=== PATIENT | female | born 1960 | race Caucasian/White ===

== ENCOUNTER 2020-10-29 15:35 | Emergency (ER) | payer OTHER, SELFPAY ==
--- NOTE | ~2020-10-29 | XR_ITS ---
[XR ribs LT 2V ] INDICATION: Left rib pain TECHNIQUE: Frontal projection of the upper left ribs, frontal projection of the lower left ribs, obli que projection of all the left ribs, frontal inspiratory chest x-ray for interpretation. FINDINGS: There are no displaced rib fractures identified. There are no soft tissue abnormality see n. The lungs are clear. IMPRESSION: 1:No displaced rib fractures. Reviewed, dictated and finalized at location A.
--- NOTE | 2020-10-29 15:39 | ED.GENADULT ---
HPI - General Adult General Chief complaint: Unspecified Stated complaint: left side pain Time Seen by Provider: 10/29/20 15:39 Source: patient and RN notes reviewed History of Present Illness HPI narrative: Patient is a 60-year-old female who presents the urgent care with complaints of left side pain. Patient states that 6 days ago she climbed into a dumpster to try to fetch a pair shoes. Patient states that then a few days later she was throwing bags. Patient has been taking Tylenol for the pain. States that she initially heard a pop on the left side . Denies of any shortness of breath or chest pain. No other acute complaints. No acute distress noted. Patient aware of the plan of care. Some parts of this dictation were generated by voice recognition software and may contain typographical and/or grammatical inaccuracies. Related Data Home Medications Medication Instructions Recorded Confirmed alprazolam 10/29/20 atenolol 10/29/20 levothyroxine 10/29/20 omeprazole 10/29/20 Allergies Allergy/AdvReac Type Severity Reaction Status Date / Time fentanyl Allergy Severe Elevated Verified 10/29/20 15:40 heart rate promethazine Allergy Severe elevated Verified 10/29/20 15:40 heart rate diltiazem Allergy Unknown unknown Verified 10/29/20 15:40 Review of Systems Review of Systems: CONSTITUTIONAL: Denies fever, chills, or sweats. EYES: Denies visual changes, redness, or discharge. ENT: Denies rhinorrhea, congestion, sore throat, or otalgia. CARDIOVASCULAR: Denies chest pain, palpitations, or edema. RESPIRATORY: Denies cough or dyspnea. GASTROINTESTINAL: Denies abdominal pain, nausea, vomiting, or diarrhea. GENITOURINARY: Denies dysuria or hematuria. SKIN: Denies rash or itching. MUSCULOSKELETAL: Reports of left-sided rib pain. Denies back pain, joint pain, or myalgia. NEUROLOGIC: Denies headache, numbness, or weakness. All other systems reviewed are negative, except as documented in HPI. PMFSH Comments At the time of my signature, I reviewed and agree with the nursing past medical, surgical, social, and family history. There is no relevant family history pertinent to the patient complaint. Exam Narrative: GENERAL: This is a well-nourished, well-developed patient, in no apparent distress. HEAD: normocephalic, atraumatic. EYES: PERRL. Sclera clear/white. Vision is grossly intact. EARS: External ears normal NOSE: External nose normal with no obvious nasal discharge, nares without redness, no rhinorrhea. THROAT: Mucous membranes moist NECK: Neck supple CARDIOVASCULAR: Regular rate and rhythm without murmurs, gallops, or rubs. RESPIRATORY: Left-sided mild anterior rib tenderness with notable edema/contusion. Clear to auscultation. Breath sounds equal bilaterally. No wheezes, rales, or rhonchi. SKIN: warm, intact with no suspicious lesions or rash, good texture and turgor. NEURO: awake, alert, and oriented to person, place and time. There were no obvious focal neurologic abnormalities. EXTREMITIES: No clubbing, cyanosis, or edema. BACK: Nontender without deformity or crepitance. No flank tenderness. Course Vital Signs Vital signs: Vital Signs Temperature 98.1 F 10/29/20 15:41 Pulse Rate 53 L 10/29/20 15:41 Respiratory Rate 16 10/29/20 15:41 Blood Pressure 125/67 10/29/20 15:41 Pulse Oximetry 98 10/29/20 15:41 Temperature 98.1 F 10/29/20 15:41 Pulse Rate 53 L 10/29/20 15:41 Respiratory Rate 16 10/29/20 15:41 Blood Pressure 125/67 10/29/20 15:41 Pulse Oximetry 98 10/29/20 15:41 reviewed Medical Decision Making MDM Narrative Medical decision making narrative: Reviewed x-ray results with the patient. She is aware that there is no rib fracture or displacement. There is a notable contusion to the anterior chest and advised the patient to use an ice pack to the area and continue Tylenol/ibuprofen. If you develop any increase in swelling associated with pain, shortn
[2020-10-29 15:41] VITALS: BP 125/67; PULSE 53; RESP 16; TEMP 36.7; O2SAT 98
== END 2020-10-29 16:30 | disposition home or self-care (01) ==
PROVIDERS: Emergency Provider Nurse Practitioner Family; PCP Family Medicine
DX: S20.212A Contusion of left front wall of thorax, initial encounter (principal); X50.3XXA Overexertion from repetitive movements, initial encounter; K21.9 Gastro-esophageal reflux disease without esophagitis; E03.9 Hypothyroidism, unspecified; Z85.9 Personal history of malignant neoplasm, unspecified; Z90.13 Acquired absence of bilateral breasts and nipples; Z92.21 Personal history of antineoplastic chemotherapy; Z92.3 Personal history of irradiation
CPT/HCPCS: 71100; 99213; G0463

== ENCOUNTER 2022-10-13 14:31 | Outpatient (CLI) | payer OTHER, SELFPAY ==
--- NOTE | 2022-10-13 15:00 | ECG_ITS ---
Measurements Intervals [place] Rate: 72 P: 75 KS: 167 QRS: 73 QRSD: 94 T: 71 QT: 366 QTc: 403 Interpretive Statements SINUS RHYTHM MINIMAL Q WAVES- ANTEROLAT/INF LEADS BASELINE ARTIFACT- I, II, III, AVR, AVL BORDERLINE ECG NO PREVIOUS ECG AVAILABLE FOR COMPARISON Electronically Signed On 10-13-2022 15:00:10 CDT by Derrell Robles D.O.
== END 2022-10-13 14:32 | disposition home or self-care (01) ==
LOC: ANHSURGERY 14:37
PROVIDERS: PCP Family Medicine; Visit Provider Otolaryngology
DX: Z01.818 Encounter for other preprocedural examination (principal); F17.210 Nicotine dependence, cigarettes, uncomplicated
CPT/HCPCS: 93005

== ENCOUNTER 2022-10-19 00:22 | Day surgery (SDC) | payer OTHER, SELFPAY ==
[2022-10-12 15:31] VITALS: BMI 25.8
--- NOTE | 2022-10-12 15:39 | SUR.PREOP ---
Report to the Outpatient Waiting Room, entrance under the green pavilion located off [facility], at time 0630 on date 10/19/22. Planned Procedure Time: 0830. Time changes happen often and if your time is changed the preop area will call you the afternoon before. - You and your visitor will be asked to self-screen and do not enter if you have any COVID symptoms. - A mask is optional within the hospital at this time. Patients may have clear liquids (water, carbonated beverages, clear teas, apple juice) until 3 hours prior to surgery with a maximum of 20 ounces. - No food from midnight until time of surgery 20 ounces before 0530 am - Infants may have breast milk until 4 hours before surgery, formula 6 hours prior to surgery. - Children will be allowed to drink immediately following surgery. If applicable, please bring a bottle or sippy cup to assist with drinking. Juice, water, soda, and popsicles are readily available. For infants on formula, please bring formula the day of surgery. Pacifiers are allowed. Take the following medications with a SIP of water the morning of surgery: atenolol and levothyroxine DO NOT STOP ANY OF YOUR OTHER PRESCRIPTION MEDICATIONS PRIOR TO SURGERY ?EXCEPT THE FOLLOWING Medications to discontinue per physician ____vitamins and supplements and 3 days Date to take last dose Please no make-up, nail citizen of the [place], hairspray, perfume, deodorant, or body powder the day of surgery. No jewelry (including any body piercings) or valuables the day of surgery, leave them at home. Please take a shower or bath the night before, or the morning of, surgery with an antibacterial soap. Wear comfortable, loose fitting clothing. Children are encouraged to wear pajamas. - Jewelry must be removed prior to entering the operating room. Rings and piercings that are not removed may be cut off. - The hospital will not accept responsibility for valuables. - Please leave all valuables, including medications, at home the day of surgery. If you are going home after surgery, a licensed [facility] ambulance driver must drive you home. - NO public transportation without another adult if you receive anesthesia. - We recommend that an adult stay with you for 24 hours following discharge. - We also recommend that you do not drive, make important decision, drink alcoholic beverages, or take any drugs that were not prescribed by your health care provider for at least 24 hours after your discharge time. For Pediatric surgeries, we recommend two adults accompany the child home. Follow any additional instructions given to you from your surgeon. If you or anyone in your household have experienced Covid symptoms in the past week, please notify your surgeon or the nurse liaison at the phone number below for possible testing. Telephone instructions given to _patient__and asked if any additional questions and then verbalized understanding. Patient advised to call surgeon office or pre surgery nurse liaison [phone] if any additional questions.
--- NOTE | 2022-10-18 17:35 | PM.IMHP ---
H&P: HPI History of Present Illness Date/Time: 10/18/22 17:35 Chief Complaint: Vocal cord polyp course voice Narrative: planned procedure Review of Systems Review of Systems: All systems reviewed & are unremarkable except as noted in HPI and below PMFSH Past Medical History Medical History Breast cancer 2002 and 2016 Uterine cancer Surgical History Surgical History S/P mastectomy, bilateral Social History Social History Smoking packs per day: 1 Smoking cigarettes per day: 20.0 Years smoked: 40 Smoking pack-years: 40.00 Smoking status: Current every day smoker Tobacco type: cigarettes Lack of Transportation: No Lack of Food: Never True Current Housing: I Have Housing Concerned About Future Housing: No Difficulty Paying Gas/Electric Bills: No Difficulty Paying for Meds: No Currently Unemployed: No Education: High School Diploma/GED Difficulty w/ Childcare or Family Care: No Living arrangements: with family Spiritual care concerns: No Meds Home Medications and Allergies Home Medications Medication Instructions Recorded Confirmed Type alprazolam 0.25 mg tablet 0.25 mg PO TID PRN Anxiety 10/29/20 10/12/22 History atenolol 50 mg tablet 50 mg PO DAILY 10/29/20 10/12/22 History levothyroxine 112 mcg tablet 112 mcg PO DAILY 10/29/20 10/12/22 History omeprazole 40 mg capsule,delayed 40 mg PO DAILY 10/29/20 10/12/22 History release calcium carbonate 600 mg calcium 1,200 mg PO ONCE 09/14/22 10/12/22 History (1,500 mg) tablet (Calcium) multivitamin 1 tablet PO DAILY 09/23/22 10/12/22 History Allergies Allergy/AdvReac Type Severity Reaction Status Date / Time fentanyl Allergy Severe Elevated Verified 09/23/22 10:16 heart rate promethazine Allergy Severe elevated Verified 09/23/22 10:16 heart rate diltiazem Allergy Unknown unknown Verified 09/23/22 10:16 Exam Narrative: vocal cord polyps Assessment and Plan Assessment and plan (1) Hoarse voice quality: Code(s): R49.0 - Dysphonia Status: Acute Assessment and Plan: plan 0 are Microdirect laryngoscopy with excision of bilateral vocal cord polyps risks were discussed risks were discussed including bleeding infection need for tracheostomy vocal cord paralysis damage to any structures above the clavicle by myself damage to dentition damage to draw damage to any structure during the induction and maintenance of anesthesia vocal cord scarring worsening of voice recurrence of polyps she smokes. Patient voiced understanding and agreed (2) Chronic laryngitis: Code(s): J37.0 - Chronic laryngitis Status: Acute (3) Vocal cord polyps: Code(s): J38.1 - Polyp of vocal cord and larynx Status: Acute
[2022-10-19] VITALS (8 sets, daily range): BP systolic 117–159; BP diastolic 50–96; PULSE 54–86; RESP 14–20; TEMP 36.3–36.4; O2SAT 94–100
--- NOTE | 2022-10-19 07:37 | WPDHPUPDATE1 ---
History and Physical Update Update Date/Time: 10/19/22 07:37 History and Physical has been reviewed, including an updated exam of the patient. There are NO changes in the patient's condition. Risks, benefits, and alternatives have been discussed and questions answered. Patient agrees to proceed with procedure.
[2022-10-19] MEDS: LACTATED RINGERS 1,000 ML 30 ML IV CONT ×2 (10:00→14:37)
--- NOTE | 2022-10-19 11:52 | WPDANESEPPF ---
Anes - Initial Pre Proc Eval Procedure: Operation Date: 10/19/22 11:30 Proposed Procedures p Micro Direct Laryngoscopy with Excision Bilateral Vocal Cord Polyps - Sony Barrios MD Date/Time: 10/19/22 11:52 Surgeon: Sony Barrios MD Pre Op Diagnosis: Vocal Cord Polyps Patient Data Age: 62 Gender: F Height: 1.7 m Weight: 76.1 kg Last Vital Signs Temp 36.3 C L 10/19/22 10:31 Pulse 72 10/19/22 10:31 Resp 16 10/19/22 10:31 BP 124/76 10/19/22 10:31 Pulse Ox 98 10/19/22 10:31 O2 Del Method Room Air 10/19/22 10:31 Allergies Allergy/AdvReac Type Severity Reaction Status Date / Time fentanyl Allergy Severe Elevated Verified 10/19/22 10:30 heart rate promethazine Allergy Severe elevated Verified 10/19/22 10:30 heart rate diltiazem Allergy Unknown unknown Verified 10/19/22 10:30 Home Medications Medication Instructions Recorded Confirmed Type alprazolam 0.25 mg tablet 0.25 mg PO TID PRN Anxiety 10/29/20 10/12/22 History atenolol 50 mg tablet 50 mg PO DAILY 10/29/20 10/19/22 History levothyroxine 112 mcg tablet 112 mcg PO DAILY 10/29/20 10/12/22 History omeprazole 40 mg capsule,delayed 40 mg PO DAILY 10/29/20 10/12/22 History release calcium carbonate 600 mg calcium 1,200 mg PO ONCE 09/14/22 10/12/22 History (1,500 mg) tablet (Calcium) multivitamin 1 tablet PO DAILY 09/23/22 10/12/22 History Patient hx anesthesia problems: post op nausea/vomiting Family hx anesthesia problems: none Results Review: All pre-operative results and documents have been reviewed as part of the pre-operative evaluation. [facility] Past Medical History Medical History Breast cancer 2002 and 2016 Uterine cancer Surgical History Surgical History S/P mastectomy, bilateral Social History Social History Smoking packs per day: 1 Smoking cigarettes per day: 20.0 Years smoked: 40 Smoking pack-years: 40.00 Smoking status: Current every day smoker Tobacco type: cigarettes Lack of Transportation: No Lack of Food: Never True Current Housing: I Have Housing Concerned About Future Housing: No Difficulty Paying Gas/Electric Bills: No Difficulty Paying for Meds: No Currently Unemployed: No Education: High School Diploma/GED Difficulty w/ Childcare or Family Care: No Living arrangements: with family Spiritual care concerns: No Anes - Eval Final PreProcedure Day of Procedure 10/19/22 11:52 Patient weight: overweight Heart: regular rate and rhythm Lungs: decreased breath sounds Airway: Mallampati scale class II Neurological: alert and oriented Last oral intake: >/= 8 hours ASA classification: III Emergent: no Anesthetic plan: proceed Anesthesia type and monitoring: general ETT and standard monitoring Results Review: All pre-operative results and documents have been reviewed as part of the pre-operative evaluation. Informed Consent: The patient's anesthetic plan and its attendant risks and benefits were discussed with the patient/family/POA. Questions were solicited and answers provided to the satisfaction of the patient/family/POA.
--- NOTE | 2022-10-19 15:08 | P.OP_ITS ---
Procedure Note - Detailed Date of Procedure 10/19/22 Pre-op Diagnosis Vocal Cord Polyps, hoarse voice Post-op Diagnosis Same Procedure Performed Microlaryngoscopy with excision of bilateral vocal cord polyps. Surgeon Sony Barrios MD Anesthesia General Indications See above Findings Large vocal cord polyps bilaterally removed slightly more epithelium that I like removed from the right side left side was perfect Description of Procedure Patient identified consent verified preop. Patient brought to the operating room. Time-out performed. General anesthesia induced endotracheal tube secured. Patient prepped reposition procedure confirm 2nd time-out performed. Maxillary tooth mouth guard placed after that was rotated Dedo laryngoscope inserted could view the cords slightly difficult to view the anterior c ommissure. Right cord sorry right polyp grasped I patient was placed in suspension. Right cord grasped incised superiorly all the edematous gelatinous material was suctioned out excess epithelium which was a significant amount was cut. I ensured to not create a scar or exposed tissue the anterior commissure. The exact same procedures performed on the left side with perfect results. Again no opposing wounds were left at the anterior commissure. Minimal blood loss about 1 cc. I performed all dictated portions of procedure laryngoscope was taken out maxillary tooth mouth guard was taken out care the patient back to Anesthesiology. Patient seen in PACU. No complications. Estimated Blood Loss 1 Drains No Packing No Pathology Yes Complications No immediate complications Condition Stable Disposition PACU [facility] Billing Surgery - Charge Forward: Surgery Billing
== END 2022-10-19 16:30 | disposition home or self-care (01) ==
PROVIDERS: PCP Family Medicine; Visit Provider Otolaryngology
PROC: 0CJS8ZZ Inspection of Larynx, Via Natural or Artificial Opening Endoscopic (ICD-10-PCS; CPT 31541; principal; 2022-10-19 11:30)
DX: J38.1 Polyp of vocal cord and larynx (principal); J37.0 Chronic laryngitis; R49.0 Dysphonia; Z85.3 Personal history of malignant neoplasm of breast; Z85.42 Personal history of malignant neoplasm of other parts of uterus; F17.210 Nicotine dependence, cigarettes, uncomplicated
CPT/HCPCS: 31541; 88305; 93005; A9270; J1100; J1170; J2250; J2405; J2704; J3010; J7120

== ENCOUNTER 2024-03-10 09:05 | Emergency (ER) | payer OTHER, SELFPAY ==
--- NOTE | ~2024-03-10 | XR_ITS ---
EXAMINATION: XR chest 2V DATE: 03/10/2024 09:42 INDICATION: Acute cough. TECHNIQUE: Frontal and lateral views of the chest were obtained. COMPARISON: None. FINDINGS: There is no pneumonia, pleural effusion, or pneumothorax. There is a right-sided breast imp lant. Surgical clips in the right upper quadrant are likely from cholecystectomy. There are surgical clips in left axilla. There is mild chronic height loss of multiple vertebral bodies. IMPRESSION: 1. No acute cardiopulmonary disease. Reviewed, dictated and finalized at location A. ING SUPERVISOR
--- OUTSIDE RECORDS SUMMARY | 2024-03-10 09:11 | XMS_ITS ---
Author Organization [facility] al Address [address] [place] [address] Care Team Providers Care Batter Depositor Name Role Phone Conor Ruiz MD Primary Care Provider [phone] [phone] Corky Carias MD Unavailable + [phone] Grazyna Valdivia NP Unavailable Aletha Lee PT Unavailable Unavaila ble Active Problems Problem Noted Date Diagnosed Date Pneumonia of right middle lobe due to infectious organism 02/28/2024 Assessment & Plan (02/28/2024 9:33 AM RECEIVING BARN CUSTODIAN): F/u cxr to ensure clearing and will follow response. NO f/c, no cough. LUQ pain 02/28/2024 Assessment & Plan (02/28/2024 9:33 AM RECEIVING BARN CUSTODIAN): Reviewed differnitia.. Most consistent with neuropathic pain related to postopative changes. Reivewed warning s/s for intra-abdominal or cardiac etiologies of pain. H/O bilateral mastectomy 02/14/2024 Former smoker 10/25/2023 Assessment & Plan (10/25/2023 8:10 AM CDT): Congratulations on quitting! Great job! She is past due for follow-up lung CT. Ordered. Will plan accordingly once results are received. Essential hypertension 10/25/2023 Assessment & Plan (02/28/2024 9:32 AM RECEIVING BARN CUSTODIAN): Stable on metoprolol XL and will follow response. Assessment & Plan (10/25/2023 7:59 AM CDT): Stable. Continue metoprolol. Will continue to monitor. Lipid screening 10/25/2023 Assessment & Plan (02/28/2024 9:33 AM RECEIVING BARN CUSTODIAN): Continue on montioring lipid panel. Assessment & Plan (10/25/2023 8:01 AM CDT): Lipid panel reviewed. Reviewed lifestyle recommendations. Abnormal stress test 07/29/2023 History of breast cancer 03/09/2023 Assessment & Plan (03/09/2023 3:50 PM RECEIVING BARN CUSTODIAN): Status post bilateral mastectomy. See plan as above. Lymphadenopathy, axillary 03/09/2023 Assessment & Plan (03/09/2023 3:50 PM RECEIVING BARN CUSTODIAN): Ultrasound ordered for evaluation. CA 125 ordered as well. Will plan accordingly once results are received. Can consider follow-up with Oncology as well for monitoring due to her history of triple cancer. BMI 28.0-28.9,adult 03/09/2023 Assessment & Plan (10/25/2023 8:10 AM CDT): Reviewed lifestyle recommendations. Recommend weight watchers and exercise. Will continue to monitor. Coronary artery disease without angina pectoris 01/05/2023 Personal history of colonic polyps 09/24/2022 Lumbar radiculopathy 05/06/2022 Lumbar stenosis without neurogenic claudication 05/06/2022 Sacroiliitis 03/11/2022 Hx of local infection of skin and subcutaneous t issue 02/15/2022 Assessment & Plan (02/15/2022 5:24 PM RECEIVING BARN CUSTODIAN): Right thigh abscess noted in 11/2021 that improved with oral antibiotics. Continues to have tenderness in the area. No fevers, pain, or drainage. No signs of infection at site or surrounding erythema. Plan for cleansing area with warm soapy water, completely drying, and applying mupirocin ointment. Patient aware to follow up with any new symptoms. History of colonic polyps 02/15/2022 Assessment & Plan (02/15/2022 5:24 PM RECEIVING BARN CUSTODIAN): Referral placed, patient aware to call and schedule. Chronic left-sided low back pain with left-sided sciatica 02/15/2022 Assessment & Plan (02/15/2022 1:10 PM RECEIVING BARN CUSTODIAN): Patient still experiencing pain post physical therapy completion. Pain has never fully resolved and worsens with strenuous activity and prolonged periods of standing and sitting. Pain does not radiate. Pain greater on the left than right. Denies any new/recent injury. No numbness or weakness in legs. Plan for meloxicam 7.5mg to aid in pain management while awaiting pain management referral. Adrenal adenoma, left 03/06/2021 Assessment & Plan (03/18/2022 9:12 AM RECEIVING BARN CUSTODIAN): Left adrenal adenoma since 2016 Stable in size based on CT on 05/14/20 No sign of hormone dysfunction- pheochromocytoma and hyper-mei were ruled out by labs in 2020 Assessment & Plan (03/06/2021 9:30 AM RECEIVING BARN CUSTODIAN): Left adrenal adenoma since 2016 Stable in size based on CT on 05/14/20 Patient is asking if this is causing problems. - we will do some evaluation for adrenal hormones, but stability indicates benign nature of the lesion. 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 Contact info given to Sri. Aware that Dr Carrasco's office should call her to set up eval. Anxiety 03/05/2019 Assessment & Plan (02/15/2022 5:25 PM RECEIVING BARN CUSTODIAN): Symptoms stable, requesting refill of alprazolam. Patient using medication infrequently. Will continue to monitor. Assessment & Plan (06/16/2020 3:18 PM CDT): Xanax 0.25mg tid prn #90 refilled 05/27/20. Had not filled since 09/2019. Reports good control of anxiety w/current regimen. No changes to be made at this time. Reviewed med Ses & scheduling. Reviewed red flags. Assessment & Plan (10/05/2019 2:49 PM CDT): Xanax increased from #30 to #90 tabs; #30 tabs usually lasts 1-2 mos. Reports good control of anxiety w/current regimen. No changes to be made at this time. Reviewed med Ses & scheduling. Reviewed red flags. Assessment & Plan (03/05/2019 4:35 PM RECEIVING BARN CUSTODIAN): Will continue current prescribed medications and she seems to be effective for her. BMI 27.0-27.9,adult 08/04/2018 Assessment & Plan (02/15/2022 1:14 PM RECEIVING BARN CUSTODIAN): Discussed healthy diet and importance of regular physical activity. Assessment & Plan (06/04/2021 11:38 AM CDT): Discussed healthy diet and importance of regular physical activity. Assessment & Plan (08/04/2018 10:36 AM CDT): Discussed healthy diet and importance of regular physical activity. Screening for diabetes mellitus 08/04/2018 Assessment & Plan (08/04/2018 10:38 AM CDT): A1c ordered; will contact w/results once rec'd. Encounter for screening for lipoid disorders Assessment & Plan (06/04/2021 1:02 PM CDT): 05/2021 TC 220 HDL 51 TRG 263 LDL 117 Reviewed lipid today with patient. Discussed elevated triglyceride level and diet and exercise recommendations. Assessment & Plan (06/16/2020 3:40 PM CDT): Lipid panel ordered; will call w/results when received. Reviewed diet/exercise recommendations. Assessment & Plan (08/04/2018 10:37 AM CDT): Lipid panel ordered; will call w/results when received. Reviewed diet/exercise recommendations. Palpitations 08/04/2018 Assessment & Plan (06/16/2020 3:39 PM CDT): No changes. Rare, intermittent palpitations. Status post breast reconstruction 07/11/2018 Hypothyroidism 04/29/2017 Assessment & Plan (02/28/2024 9:32 AM RECEIVING BARN CUSTODIAN): Continue on thyroid medication replacmeent and will follow response. Clincialy and chemically euthyorid. Assessment & Plan (10/25/2023 8:09 AM CDT): Status post VELARDE treatment in 1999. Clinically and chemically euthyroid. Will continue to monitor. Assessment & Plan (03/18/2022 8:57 AM RECEIVING BARN CUSTODIAN): S/p VELARDE treatment in 1999 Patient is clinically euthyroid, TSH of 2.8 on 03/06/21 Plan: Continue Levothyroxine 112 mcg/day The proper way of taking Levothyroxine reviewed with patient. Check TSH I will adjust the dose if needed. Assessment & Plan (03/06/2021 9:28 AM RECEIVING BARN CUSTODIAN): S/p VELARDE treatment in 1999 Patient is clinically euthyroid, TSH of 1.2 on 11/23/19 Plan: Continue Levothyroxine 112 mcg/day The proper way of taking Levothyroxine reviewed with patient. Check TSH I will adjust the dose if needed. Assessment & Plan (06/16/2020 2:12 PM CDT): Managed by Dr Sehti. Assessment & Plan (11/26/2019 11:30 AM CDT): S/p VELARDE treatment in 1999 Patient is clinically euthyroid, TSH of 1.2 on 11/23/19 Plan: Continue Levothyroxine 112 mcg/day The proper way of taking Levothyroxine reviewed with patient. Assessment & Plan (10/05/2019 2:47 PM CDT): TSH/T4 ordered; will contact with results when received. Reviewed med SE & scheduling. Reviewed sxs hypo/hyperthyroidism. No changes at this time. Assessment & Plan (08/04/2018 10:37 AM CDT): TSH/T4 ordered; will call w/results when rec'd. Reviewed med Ses & scheduling. Reviewed sxs hypo/hyperthyroidism. No changes at this time. 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 Keep up the great work! Assessment & Plan (02/15/2022 5:23 PM RECEIVING BARN CUSTODIAN): Encouraged complete cessation. Patient due for annual CT lung cancer screening, ordered today. Assessment & Plan (06/16/2020 2:12 PM CDT): Precontemplative. Encouraged complete smoking cessation. Discussed different types of medications & ivam-xox-vddwguk aides to help with cessation. Assessment & Plan (10/05/2019 2:46 PM CDT): Precontemplative. Encouraged complete smoking cessation. Discussed different types of medications & rvma-act-cmqvcwm aides to help with cessation. Assessment & Plan (08/04/2018 10:39 AM CDT): Precontemplative. Encouraged complete smoking cessation. Discussed different types of medications & prho-dxv-bkujbgz aides to help with cessation. CT lung cancer screening ordered. Will contact w/results once rec'd. Hypertension 06/23/2013 Overview (05/12/2016): HYPERTENSION NOS Assessment & Plan (03/09/2023 3:49 PM RECEIVING BARN CUSTODIAN): Normotensive. Continue with lifestyle management. Will continue to monitor. Assessment & Plan (03/18/2022 9:11 AM RECEIVING BARN CUSTODIAN): Controlled with medication - continue medication per PCP - low salt diet. Assessment & Plan (03/06/2021 8:58 AM RECEIVING BARN CUSTODIAN): Controlled with medication - continue medication per PCP - low salt diet. Assessment & Plan (06/16/2020 3:39 PM CDT): The blood pressure is under good control. Ideally it should be under 130/80. Continue medications without adjustment. Continue efforts to eat well (4-5 fruits and veggies) daily and exercise for about 30 min nearly every day. Watch salt intake, keeping to less than 2000mg per day. Limit alcohol. Include strategies to cope with stress. Assessment & Plan (05/28/2020 10:44 AM CDT): BP has been elevated since arrival, though this is most likely exacerbated by pain and nausea. Will monitor blood pressure with home atenolol as pain and nausea have improved. Assessment & Plan (11/26/2019 11:31 AM CDT): Controlled with medication - continue medication per PCP - low salt diet. Assessment & Plan (10/05/2019 2:47 PM CDT): The blood pressure is under good control. Ideally it should be under 130/80. Continue medications without adjustment. Continue efforts to eat well (4-5 fruits and veggies) daily and exercise for about 30 min nearly every day. Watch salt intake, keeping to less than 2000mg per day. Limit alcohol. Include strategies to cope with stress. Labs ordered today; will contact w/results once received. Assessment & Plan (08/04/2018 10:37 AM CDT): The blood pressure is under good control. Ideally it should be under 130/80. Continue medications without adjustment. Continue efforts to eat well (4-5 fruits and veggies) daily and exercise for about 30 min nearly every day. Watch salt intake, keeping to less than 2000mg per day. Limit alcohol. Include strategies to cope with stress. Labs ordered today; will contact w/results once received. Gastroesophageal reflux disease 12/25/2012 Assessment & Plan (06/16/2020 3:40 PM CDT): Would like to stop omeprazole d/t recent julieta. Believes that her stomach pain issues were all r/t gallbladder. Reviewed that omeprazole was initiated in 2012. Will watch diet. Aware that she can resume omeprazole if needed. Assessment & Plan (10/23/2019 11:34 AM CDT): Continue omeprazole Continue to work on smoking cessation Consider surgery to reduce Alexis edema after smoking cessation Current Oncology Plans No current plan information found. Past Plans No past plan information found. Radiation Treatments * No radiation treatments are documented for this patient in [facility]. Treatments may have been administered in another system. Lifetime Dose Tracking * Chemical Lifetime Dose Automatic Entry Manual Entr y Fluoro Time 0.083 minutes 0.083 minutes 0 minutes Air kerma at the reference point (Ka,r) 1.742 mGy 1 .742 mGy 0 mGy DLP 149.1 mGycm 149.1 mGycm 0 mGycm CTDIvol 4.84 mGy 4.84 mGy 0 mGy Resolved Problems Problem Noted Date Diagnosed Date Resolved Date Contusion of rib on left side 02/25/2023 02/25/2023 Chronic bilateral low back p ain without sciatica 06/04/2021 05/06/2022 Assessment & Plan (06/04/2021 1:05 PM CDT): Will check imaging today to determine next steps. Patient to take ibuprofen 600 mg 3 times a day with food for pain and inflammation. Given a prescription for Flexeril 5 mg 3 times a day for muscle spasms, encouraged patient to take mainly at night. Reviewed medication side effects and scheduling. The patient denies any numbness/tingling down the legs or loss of bowel/bladder. Reviewed red flag signs and symptoms warranting immediate evaluation. Discussed physical therapy as indicated following imaging today. BMI 25.0-25.9,adult 06/16/2020 06/05/19 22 Assessment & Plan (06/16/2020 3:41 PM CDT): Discussed healthy diet and importance of regular physical activity. BMI is acceptable for this patient. Cholecystitis 05/28/2020 06/25/2020 Assessment & Plan (05/28/2020 10:36 AM CDT): Cholelithiasis read demonstrated on imaging with mild gallbladder thickening suggestive of acute cholecystitis. This is supported by leukocytosis and symptom profile. General surgery consulted. Will start Zosyn while awaiting surgery evaluation. Unintentional weight loss 10/05/2019 Assessment & Plan (10/05/2019 2:46 PM CDT): Has lost ~35# on her own scale wo trying. H/o breast ca x2 & uterine ca. Whole body scan & labs ordered. Will contact w/results once rec'd. Will continue to monitor weight & intake. BMI 21.0-21.9, adult 10/05/2019 021 Assessment & Plan (10/05/2019 2:48 PM CDT): Unintentional wt loss of 35# in ~6 mos. To continue to monitor wt/intake. Acute rhinitis 03/05/2019 10/05/2019 Assessment & Plan (03/05/2019 4:34 PM RECEIVING BARN CUSTODIAN): Advised to try and stop smoking. Dizziness 08/04/2018 10/05/2019 Assessment & Plan (08/04/2018 10:39 AM CDT): EKG SB w/o ectopy. HR 53. Reviewed w/Dr Ruiz. Compared to past EKGs. holter monitor ordered; will contact w/results once rec'd. To re-engage with cardiology. Will send holter monitor results to their office. Reviewed red flags; what would warrant rtc or ED for more emergent eval. Encounter for breast reconst ruction following mastectomy 07/11/2018 06/16/2020 Impacted cerumen 08/26/2015 06/16/2020 Overview (05/14/2016): Left ear impacted cerumen Cigarette smoker 07/20/2015 06/16/2020 Assessment & Plan (03/05/2019 4:35 PM RECEIVING BARN CUSTODIAN): She does not wish to stop smoking at this time. Hyperthyroidism 06/23/2013 04/29/2017 Overview (05/12/2016): Hyperthyroidism Gastrointestinal tract bleed 01/10/2012 10/05/2019 Headache(784.0) 06/15/2010 10/05/2019
--- OUTSIDE RECORDS SUMMARY | 2024-03-10 09:11 | XMS_ITS | Encounter Summary ---
Author Organization [facility] Address [address] [place] [address] Care Team Providers Care Mend Worker Name Role Phone Conor Ruiz MD Primary Care Provider [phone] Conor Ruiz MD Primary Care Provider [phone] Conor Ruiz MD Primary Care Provider [phone] Conor Ruiz MD Primary Care Provider [phone] Conor Ruiz MD Primary Care Provider [phone] Corky Carias MD Unavailable [phone] [phone] Grazyna Valdivia NP Unavailable Aletha Lee PT Unavailable Unavaila ble Encounter Details Date Type Department Care Team (Late st Contact Info) Description 1960 Orders Only [facility] [place] [facility] Information Management [address] [place] [address] Scanning, Provider Social History Tobacco Use Types Packs/Day Years Used Date Smoking Tobacco: Never Assessed Comments Unknown Sex and Gender Information Value Date Recorded Sex Assigned at Not on file Legal Sex Female 11:50 PM EQUIPMENT ASSOCIATE Gender Identity Not on file Sexual Orientation Not on file documented as of this encounter Plan of Treatment Not on file documented as of this encounter Procedures Procedure Name Priority Date/Time Associated Diagnosis Comments SCAN - RADIOLOGY/IMAGING 1960 documented in this encounter Results * SCAN - RADIOLOGY/IMAGING (1962) Anatomical Region Laterality Modality Other us Provider Scanning Final Result documented in this encounter Visit Diagnoses Not on filedocumented in this encounter Additional Health Concerns Infection Onset Date Last Indicated Resolved Time COVID: Suspected 11/14/2020 11/14/2020 11/14/2020 10:51 AM CDT COVID: Suspected 11/14/2020 11/14/2020 11/15/2020 7:10 AM CDT COVID: Suspected 11/04/2021 11/04/2021 11/04/2021 2:58 PM CDT COVID: Suspected 01/22/2022 01/22/2022 01/22/2022 1:24 PM EQUIPMENT ASSOCIATE COVID19 01/22/2022 01/22/2022 02/01/2022 3:05 AM EQUIPMENT ASSOCIATE COVID: Recovered Comment:Added based on recent COVID infection. 02/01/2022 02/04/2022 05/02/2022 3:05 AM C DT COVID: Suspected 09/18/2022 09/18/2022 09/18/2022 5:55 PM CDT COVID: Suspected 05/06/2023 05/06/2023 05/06/2023 8:32 AM CDT COVID: Suspected 01/08/2024 01/08/2024 01/08/2024 3:13 PM EQUIPMENT ASSOCIATE documented as of this encounter Care Teams Mend Worker Relationship Specialty Start Date End Date Conor Ruiz MD [address] [place] [address] PCP - General 05/07/16 Conor Ruiz MD [address] [place] [address] PCP - General 03/05/10 05/06/16 Conor Ruiz MD [address] [place] [address] PCP - General 08/01/09 03/04/10 Conor Ruiz MD [address] [place] [address] PCP - General 01/27/09 07/31/09 Conor Ruiz MD [address] [place] [address] PCP - General 02/25/06 01/26/09 Corky Carias MD [address] [place] [address] Surgeon General Surgery 05/29/20 Grazyna Valdivia, GOLD CHARMER [address] [place] [address] Nurse Practitioner Family Medicine 05/29/20 Aletha Lee, PT Physical Therapist Physical Therapy 07/20/21 documented as of this encounter
--- OUTSIDE RECORDS SUMMARY | 2024-03-10 09:11 | XMS_ITS | Referral Summary ---
Author Organization [facility] Address [address] [place] [address] Care Team Providers Care Acid Tank Liner Name Role Phone Conor Ruiz MD Primary Care Provider [phone] Corky Carias MD Unavailable [phone] Grazyna Valdivia NP Unavailable Aletha Lee PT Unavailable Unavaila ble Encounters Date Type Department Care Team Description 02/21/19 8:26 AM CATAPULT AND ARRESTING GEAR OFFICER - 02/21/19 11:59 PM CATAPULT AND ARRESTING GEAR OFFICER Hospital Encounter [facility] [address] [place] [address] LUQ pain Discharge Disposition: Discharge to home or self care 02/13/19 3:15 PM CATAPULT AND ARRESTING GEAR OFFICER Office Visit [facility] Primary Care at [address] [phone] Conor Ruiz MD Essential hypertension (Primary Dx); Lipid screening; Hypothyroidism, unspecified type; Pneumonia of right middle lobe due to infectious organism; LUQ pain 02/12/19 25 Telephone [facility] Surgery [facility] Floor [address] [place] [address] Elisabeth Weber MD 02/02/20 24 Telephone [facility] [address] [place] [address] Conor Ruiz MD Medical Question/Miscellaneous 01/25/20 10:07 AM CATAPULT AND ARRESTING GEAR OFFICER Anesthesia Event [address] [address] Jey Whatley MD 01/25/20 9:30 AM CATAPULT AND ARRESTING GEAR OFFICER - 01/25/20 24 10:00 AM CATAPULT AND ARRESTING GEAR OFFICER Surgery [address] [address] Ailin Juarez MD ESOPHAGOGASTRODUODENOSCOPY BIOPSY 01/25/20 8:15 AM CATAPULT AND ARRESTING GEAR OFFICER - 01/25/20 24 11:05 AM CATAPULT AND ARRESTING GEAR OFFICER Hospital Encounter [address] [address] Ailin Juarez MD Gastroesophageal reflux disease, unspecified whether esophagitis present Discharge Disposition: Discharge to home or self care 01/12/20 Nurse Triage [facility] [address] [address] oCnor Ruiz MD 01/09/20 24 Telephone [facility] at [address] [place] [address] Anita Vergara MA 01/09/20 24 Telephone [facility] at [address] [place] [address] Justa Westbrook MA 01/09/20 8:12 AM CATAPULT AND ARRESTING GEAR OFFICER - 01/09/20 11:59 PM CATAPULT AND ARRESTING GEAR OFFICER Hospital Encounter [address] [address] Acute cough; Upper respiratory infection, viral; Fever, unspecified fever cause Discharge Disposition: Discharge to home or self care 01/08/20 24 2:45 PM CATAPULT AND ARRESTING GEAR OFFICER Office Visit [facility] at [address] [place] [address] Olivia Flowers NP Acute cough (Primary Dx); Upper respiratory infection, viral; Fever, unspecified fever cause 12/28/19 24 Telephone [facility] Gastroenterology at [address] [place] [phone] Kiya Keyes 12/27/19 24 4:19 PM CATAPULT AND ARRESTING GEAR OFFICER - 12/27/19 8:13 PM [facility] Emergency [facility] Emergency Department 1 [place] [address] Perico Wagner MD Gastroesophageal reflux disease, unspecified whether esophagitis present (Primary Dx) Discharge Disposition: Discharge to home or self care from Last 3 Months Allergies Active Allergy Reactions Criticality Noted Date Comments Varenicline Swelling Medium Diltiazem Unknown Fentanyl Other (See comments) Low Tachycardia & vomiting Methimazole Anaphylaxis,Unknown High TAPAZOLE Promethazine Swelling Medium Phenergan Medications calcium carbonate (CALCIUM 500 ORAL) Take by mouth daily Active cholecalciferol, vitamin D3, (VITAMIN D3 ORAL) Take by mouth daily Active multivitamin capsule Take by mouth daily Active acetaminophen (TYLENOL) 500 mg tablet Take 1 tablet (500 mg total) by mouth every 4 (four) hours as needed Active diphenhydrAMINE 25 mg capsule Take 1 tablet/capsule (25 mg total) by mouth every 6 (six) hours as needed for itching Active cetirizine (ZyrTEC) 10 mg chewable tablet Take 1 tablet (10 mg total) by mouth daily Active metoprolol XL (TOPROL-XL) 25 mg extended release tablet Take 1 tablet (25 mg total) by mouth daily 90 tablet 3 4 10/04/19 25 Active levothyroxine (SYNTHROID) 112 mcg tablet Take 1 tablet (112 mcg total) by mouth cobbler apprentice before breakfast 90 tablet 1 4 Active omeprazole (PriLOSEC) 40 mg capsuleIndicatio ns:Gastroesophag eal reflux disease without esophagitis Take 1 capsule (40 mg total) by mouth daily 100 capsule 4 Active ALPRAZolam (XANAX) 0.25 mg tabletIndication s:Anxiety TAKE 1 TABLET(0.25 MG) BY MOUTH THREE TIMES DAILY NEEDED FOR ANXIETY 90 tablet 4 Active meloxicam (MOBIC) 7.5 mg tabletIndication s:Chronic left-sided low back pain without sciatica TAKE 1 TABLET(7.5 MG) BY MOUTH DAILY 30 tablet 11 4 Active Active Problems Problem Noted Date Diagnosed Date Pneumonia of right middle lobe due to infectious organism 02/28/2024 Assessment & Plan (02/28/2024 9:33 AM CATAPULT AND ARRESTING GEAR OFFICER): F/u cxr to ensure clearing and will follow response. NO f/c, no cough. LUQ pain 02/28/2024 Assessment & Plan (02/28/2024 9:33 AM CATAPULT AND ARRESTING GEAR OFFICER): Reviewed differnitia.. Most consistent with neuropathic pain [...] 10/25/2023 Assessment & Plan (02/28/2024 9:32 AM CATAPULT AND ARRESTING GEAR OFFICER): Stable on metoprolol XL and will follow response. Assessment & Plan (10/25/2023 7:59 AM CDT): Stable. Continue metoprolol. Will continue to monitor. Lipid screening 10/25/2023 Assessment & Plan (02/28/2024 9:33 AM CATAPULT AND ARRESTING GEAR OFFICER): Continue on montioring lipid panel. Assessment & Plan (10/25/2023 8:01 AM CDT): Lipid panel reviewed. Reviewed lifestyle recommendations. Abnormal stress test 07/29/2023 History of breast cancer 03/09/2023 Assessment & Plan (03/09/2023 3:50 PM CATAPULT AND ARRESTING GEAR OFFICER): Status post bilateral mastectomy. See plan as above. Lymphadenopathy, axillary 03/09/2023 Assessment & Plan (03/09/2023 3:50 PM CATAPULT AND ARRESTING GEAR OFFICER): Ultrasound ordered for evaluation. CA 125 ordered [...] 02/15/2022 Assessment & Plan (02/15/2022 5:24 PM CATAPULT AND ARRESTING GEAR OFFICER): Right thigh abscess noted in 11/2021 that [...] 02/15/2022 Assessment & Plan (02/15/2022 5:24 PM CATAPULT AND ARRESTING GEAR OFFICER): Referral placed, patient aware to call and schedule. Chronic left-sided low back pain with left-sided sciatica 02/15/2022 Assessment & Plan (02/15/2022 1:10 PM CATAPULT AND ARRESTING GEAR OFFICER): Patient still experiencing pain post physical therapy [...] 03/06/2021 Assessment & Plan (03/18/2022 9:12 AM CATAPULT AND ARRESTING GEAR OFFICER): Left adrenal adenoma since 2016 Stable in size based on CT on 05/14/20 No sign of hormone dysfunction- pheochromocytoma and hyper-mei were ruled out by labs in 2020 Assessment & Plan (03/06/2021 9:30 AM CATAPULT AND ARRESTING GEAR OFFICER): Left adrenal adenoma since 2016 Stable in [...] for chronic hoarseness. Contact info given to Alok. Aware that Dr Carrasco's office should call her to set up eval. Anxiety 03/05/2019 Assessment & Plan (02/15/2022 5:25 PM CATAPULT AND ARRESTING GEAR OFFICER): Symptoms stable, requesting refill of alprazolam. Patient [...] flags. Assessment & Plan (03/05/2019 4:35 PM CATAPULT AND ARRESTING GEAR OFFICER): Will continue current prescribed medications and she seems to be effective for her. BMI 27.0-27.9,adult 08/04/2018 Assessment & Plan (02/15/2022 1:14 PM CATAPULT AND ARRESTING GEAR OFFICER): Discussed healthy diet and importance of regular [...] 04/29/2017 Assessment & Plan (02/28/2024 9:32 AM CATAPULT AND ARRESTING GEAR OFFICER): Continue on thyroid medication replacmeent and will follow response. Clincialy and chemically euthyorid. Assessment & Plan (10/25/2023 8:09 AM CDT): Status post VELARDE treatment in 1999. Clinically and chemically euthyroid. Will continue to monitor. Assessment & Plan (03/18/2022 8:57 AM CATAPULT AND ARRESTING GEAR OFFICER): S/p VELARDE treatment in 1999 Patient is clinically euthyroid, TSH of 2.8 on 03/06/21 Plan: Continue Levothyroxine 112 mcg/day The proper way of taking Levothyroxine reviewed with patient. Check TSH I will adjust the dose if needed. Assessment & Plan (03/06/2021 9:28 AM CATAPULT AND ARRESTING GEAR OFFICER): S/p VELARDE treatment in 1999 Patient is clinically euthyroid, TSH of 1.2 on 11/23/19 Plan: Continue Levothyroxine 112 mcg/day The proper way of taking Levothyroxine reviewed with patient. Check TSH I will adjust the dose if needed. Assessment & Plan (06/16/2020 2:12 PM CDT): Managed by Dr Sethi. Assessment & Plan (11/26/2019 11:30 AM CDT): [...] DISORDER Assessment & Plan (03/09/2023 3:50 PM CATAPULT AND ARRESTING GEAR OFFICER): Congratulations on cessation! Keep up the great work! Assessment & Plan (02/15/2022 5:23 PM CATAPULT AND ARRESTING GEAR OFFICER): Encouraged complete cessation. Patient due for annual CT lung cancer screening, ordered today. Assessment & Plan (06/16/2020 2:12 PM CDT): Precontemplative. Encouraged complete smoking cessation. Discussed different types of medications & jhdb-ytc-dhqibhb aides to help with cessation. Assessment & Plan (10/05/2019 2:46 PM CDT): Precontemplative. Encouraged complete smoking cessation. Discussed different types of medications & amzj-tkf-ejyrrhz aides to help with cessation. Assessment & Plan (08/04/2018 10:39 AM CDT): Precontemplative. Encouraged complete smoking cessation. Discussed different types of medications & ohlr-ntd-ycglidx aides to help with cessation. CT lung cancer screening ordered. Will contact w/results once rec'd. Hypertension 06/23/2013 Overview (05/12/2016): HYPERTENSION NOS Assessment & Plan (03/09/2023 3:49 PM CATAPULT AND ARRESTING GEAR OFFICER): Normotensive. Continue with lifestyle management. Will continue to monitor. Assessment & Plan (03/18/2022 9:11 AM CATAPULT AND ARRESTING GEAR OFFICER): Controlled with medication - continue medication per PCP - low salt diet. Assessment & Plan (03/06/2021 8:58 AM CATAPULT AND ARRESTING GEAR OFFICER): Controlled with medication - continue medication per [...] to reduce Alexis edema after smoking cessation Resolved Problems Problem Noted Date Diagnosed Date [...] 10/05/2019 Assessment & Plan (03/05/2019 4:34 PM CATAPULT AND ARRESTING GEAR OFFICER): Advised to try and stop smoking. Dizziness [...] 06/16/2020 Assessment & Plan (03/05/2019 4:35 PM CATAPULT AND ARRESTING GEAR OFFICER): She does not wish to stop smoking at this time. Hyperthyroidism 06/23/2013 04/29/2017 Overview (05/12/2016): Hyperthyroidism Gastrointestinal tract bleed 01/10/2012 10/05/2019 Headache(784.0) 06/15/2010 10/05/2019 Immunizations Name Administration Dates Next Due Influenza, Unspecified 02/14/2024(Deferr ed: Patient Refused),10/25/2023(Deferred: Patient Refused),03/08/2023(Deferred: Patient Refused),02/07/2023(Deferred: Patient Refused),02/15/2022(Deferred: Patient Refused),06/04/2021(Deferred: Patient Refused),11/07/2020(Deferred: Patient Refused),11/08/2019(Deferred: Patient Refused),03/05/2019(Deferred: Patient Refused),02/07/2018(Deferred: Patient Refused),02/07/2018(Deferred: Patient Refused),08/15/2017(Deferred: Patient Refused) Moderna SARS-CoV-2 Monovalen t Vaccination (12+ YRS) 04/22/2020,03/19/2020 Pneumococcal Polysaccharide PPV23 06/04/2021(Def erred: Patient Refused) Tdap 10/07/2023 Social History Tobacco Use Types Packs/Day Years Used Date Smoking Tobacco: Former Cigarettes 1.5 40 0 10/18/1982 - 10/18/2022 Smokeless Tobacco: Never Tobacco Cessation:Counseling Given: Not Answered Comments:Smoking History Packs/day: 1.5 Packs Alcohol Use Standard Drinks/Week Comments Yes 0 (1 standard drink = 0.6 oz pur e alcohol) occasionally AUDIT-C Answer Date Recorded Q1: How often do you have a drink containing alcohol? Never 03/08/2023 Q2: How many drinks containi ng alcohol do you have on a typical day when you are drinking? Patient does not drink Q3: How often do you have si x or more drinks on one occasion? Never 03/08/2023 PHQ-2 Answer Date Recorded PHQ-2 Total Score (If total score is 3 or more points, staff should administer the PHQ-9) 0 02/14/2024 Personal Safety Answer Date Recorded Have you ever been in or are you currently in a harmful physical or emotional relationship or is someone making you feel afraid or unsafe? Denies 01/25/2024 Comments No Sex and Gender Information Value Date Recorded Sex Assigned at Not on file Legal Sex Female 11:50 PM CATAPULT AND ARRESTING GEAR OFFICER Gender Identity Not on file Sexual Orientation Not on file Last Filed Vital Signs Vital Sign Reading Time Taken Comments Blood Pressure 124/76 02/14/2024 3:20 PM CATAPULT AND ARRESTING GEAR OFFICER Pulse 80 02/14/2024 3:20 PM CATAPULT AND ARRESTING GEAR OFFICER Temperature 36.8 ??C (98.2 ??F) 02/14/2024 3:20 PM CS T Respiratory Rate 16 01/25/2024 10:56 AM CATAPULT AND ARRESTING GEAR OFFICER Oxygen Saturation 98% 02/14/2024 3:20 PM CATAPULT AND ARRESTING GEAR OFFICER Inhaled Oxygen Concentration - - Weight 86.6 kg (191 lb) 02/14/2024 3:20 PM CATAPULT AND ARRESTING GEAR OFFICER Height 170.2 cm (5' 7 ) 02/14/2024 3:20 PM CATAPULT AND ARRESTING GEAR OFFICER Body Mass Index 29.91 02/14/2024 3:20 PM CATAPULT AND ARRESTING GEAR OFFICER Plan of Treatment Not on file Medical Devices Implanted Type Area Music Producer Device Identifier Shelf Expiration Date Model / Serial / Lot [employer] Angio-Seal Vip 6fr Closere Device [id number] - [id number] Implanted:Qty: 1 on 08/04/2023 by Ashvin Suarez MD at [facility] [employer] 12/24/2023 [id number] / / [id number] Procedures Procedure Name Priority Date/Time Associated Diagnosis Comments US ABDOMEN COMPLETE Schedule Routine, Read Routine (OP Routine) 02/22/2024 9:00 AM CATAPULT AND ARRESTING GEAR OFFICER LUQ pain SURGICAL PATHOLOGY STAT 01/25/2024 1:13 PM CATAPULT AND ARRESTING GEAR OFFICER Gastroesophagea l reflux disease, unspecified whether esophagitis present H. PYLORI UREASE SCREEN (JOSEPH TEST) STAT 01/25/2024 10:25 AM CATAPULT AND ARRESTING GEAR OFFICER BOUGIE DILATION 01/25/2024 10:01 AM CATAPULT AND ARRESTING GEAR OFFICER Gastroesophagea l reflux disease, unspecified whether esophagitis present ESOPHAGOGASTRODUODENOSCOPY BIOPSY 01/25/2024 10:01 AM CATAPULT AND ARRESTING GEAR OFFICER Gastroesophagea l reflux disease, unspecified whether esophagitis present EGD 01/25/2024 8:24 AM CATAPULT AND ARRESTING GEAR OFFICER XR CHEST PA LATERAL 2 VIEWS Schedule THIAGO, Read THIAGO (Appt Today, Awaiting Results) 01/09/2024 8:20 AM CATAPULT AND ARRESTING GEAR OFFICER Acute cough Upper respiratory infection, viral Fever, unspecified fever cause POC INFLUENZA A/B, COVID-19 ANTIGEN Routine 01/08/2024 3:12 PM CATAPULT AND ARRESTING GEAR OFFICER Acute cough TROPONIN T HIGH-SENSITIVITY 4-HR Timed 12/27/2023 6:46 PM CATAPULT AND ARRESTING GEAR OFFICER TROPONIN T HIGH-SENSITIVITY 2-HOUR Timed 12/27/2023 4:44 PM CATAPULT AND ARRESTING GEAR OFFICER URINALYSIS AND REFLEX TO MICROSCOPIC AND CULTURE Routine 12/27/2023 3:03 PM CATAPULT AND ARRESTING GEAR OFFICER EGFR STAT 12/27/2023 2:37 PM CATAPULT AND ARRESTING GEAR OFFICER DIFFERENTIAL AUTO STAT 12/27/2023 2:37 PM CATAPULT AND ARRESTING GEAR OFFICER TROPONIN T HIGH-SENSITIVITY SERIES (BASELINE, 2HR, 4HR, 6HR) STAT 12/27/2023 2:37 PM CATAPULT AND ARRESTING GEAR OFFICER COMPREHENSIVE METABOLIC PANEL STAT 2:37 PM CATAPULT AND ARRESTING GEAR OFFICER CBC WITH AUTO DIFFERENTIAL STAT 12/26 2:37 PM CATAPULT AND ARRESTING GEAR OFFICER XR CHEST 1 VIEW ED 12/27/2023 1:24 PM CATAPULT AND ARRESTING GEAR OFFICER ECG 12-LEAD STAT 12/27/2023 1:10 PM CATAPULT AND ARRESTING GEAR OFFICER CT LUNG CANCER SCREENING Schedule Routine, Read Routine (OP Routine) 11/10/2023 7:05 AM CDT Former smoker COLONOSCOPY 05/10/2023 8:24 AM CDT SCREENING MAMMOGRAM W CEDRIC Routine 07/15 11:02 AM CDT from Last 3 Months or Most Recently Relevant to Health Maintenance Results * US Abdomen Complete (02/22/2024 9:00 AM CATAPULT AND ARRESTING GEAR OFFICER) Anatomical Region Laterality Modality Abdomen N/A Ultrasound 02/22/2024 10:5 0 AM CATAPULT AND ARRESTING GEAR OFFICER Impressions 02/22/2024 10:50 AM CATAPULT AND ARRESTING GEAR OFFICER 1. ??Cholecystectomy. 2. ??The liver and bile ducts are normal. 3. ??The spleen and both kidneys appear normal. Electronically signed by: Arnoldo Martinez M.D. Narrative 02/22/2024 10:50 AM CATAPULT AND ARRESTING GEAR OFFICER EXAM: ?? US ABDOMEN COMPLETE DATE: ?? 02/22/2024 9:00 AM CLINICAL HISTORY: ?? Left upper quadrant abdominal pain. COMPARISON: ?? CT abdomen/pelvis from 05/28/2020. FINDINGS: ?? The gallbladder has been removed. ??The liver is normal in size and echogenicity. ??No evidence of intrahepatic bile duct dilatation. ??The common bile duct is normal and measures 5 mm in diameter. ??Color Doppler imaging of the portal vein shows normal blood flow. The spleen is normal in size and echogenicity. ??The pancreas is not visualized due to overlying bowel gas. ??Both kidneys are normal in size and echogenicity. ??The right kidney measures 10.3 cm in bipolar length. ??The left kidney measures 11.0 cm in bipolar length. ??No evidence of hydronephrosis. The abdominal aorta and inferior vena cava are unremarkable. ??No evidence of ascites. Procedure Note Arnoldo Martinez MD - 02/22/2024 EXAM: US ABDOMEN COMPLETE DATE: 02/22/2024 9:00 AM CLINICAL HISTORY: Left upper quadrant abdominal pain. COMPARISON: CT abdomen/pelvis from 05/28/2020. FINDINGS: The gallbladder has been removed. The liver is normal in size and echogenicity. No evidence of intrahepatic bile duct dilatation. The common bile duct is normal and measures 5 mm in diameter. Color Doppler imaging of the portal vein shows normal blood flow. The spleen is normal in size and echogenicity. The pancreas is not visualized due to overlying bowel gas. Both kidneys are normal in size and echogenicity. The right kidney measures 10.3 cm in bipolar length. The left kidney measures 11.0 cm in bipolar length. No evidence of hydronephrosis. The abdominal aorta and inferior vena cava are unremarkable. No evidence of ascites. IMPRESSION: 1. Cholecystectomy. 2. The liver and bile ducts are normal. 3. The spleen and both kidneys appear normal. Electronically signed by: Arnoldo Martinez M.D. Conor Ruiz MD [facility] [place]ED[place] Final R esult * Surgical pathology (01/25/2024 1:13 PM CATAPULT AND ARRESTING GEAR OFFICER) Tissue (Esophageal biopsy) 01/25/2024 10:27 AM CATAPULT AND ARRESTING GEAR OFFICER Narrative PATHOLOGY [facility] ([facility]) - 01/26/2024 1:57 PM CATAPULT AND ARRESTING GEAR OFFICER EPIC results best viewed via link to PDF [facility] Department of Pathology [address] [place] [address] Note to Patients: This report may contain a detailed description of human tissue sent by a health care provider to the laboratory for pathologic evaluation. The content of this report is essential for diagnosis and may provide important critical findings. This information may be unfamiliar to patients to review without a medical professional present. It is advised that the patient review this report in the presence of a health care provider who can answer questions and explain the details. Final Report Patient Name: ??ALOK CRAIG Address: ??[address] [place] [address], ??[place], [place] [address] Gender: ??F : ??1960 (Age: 63) Service: ??Gastro Location: ??[facility] Hospital #: ??[id number] Patient Type: ??[facility] Accession # ?[id number] Taken: ??01/25/2024 Received: ??01/25/2024 Accessioned: ??01/25/2024 Reported: ??01/26/2024 Physician(s):Dr. Ailin Juarez M.D. Diagnosis: Esophagus, biopsy: ? - Benign squamous epithelium with mild increase in eosinophils (up to five per high-power field) compatible with reflux related changes. Pasquale Zee M.D. Report Electronically Reviewed and Signed Out By ??Pasquale Zee M.D. ??01/26/2024 13:57:25 Specimen(s) Received: A: Esophagus Biopsy Microscopic Description: Sections show fragments of benign squamous epithelium which show a few scattered eosinophils (up to five per high-power field). ??The findings are compatible with reflux related changes. Clinical History: GERD. ??EGD. Gross Description: The specimen is submitted in a single formalin filled container labeled ALOK CRAIG and esophagus . ??It is 3 vogel fragments between <1 and 1 mm. ??All in one cassette. Nathan Sexton R.N., P.A./Sapna Tovar M.D. REPORT IMAGES AND SCANNED DOCUMENTS, IF INCLUDED, ONLY VIEWABLE IN PDF VERSION OF REPORT The performance characteristics of some immunohistochemical stains, fluorescence in-situ hybridization tests and immunophenotyping by flow cytometry cited in this report (if any) were determined by the Surgical Pathology Department at [facility] as part of an ongoing quality review specialist program and in compliance with federally mandated regulations drawn from the Clinical Laboratory Improvement Act of 1988 (CLIA '88). ??Some of these tests rely on the use of analyte specific reagents and are subject to specific labeling requirements by the US Food and Drug Administration. ??Such diagnostic tests may only be performed in a facility that is certified by the Department of Health and Human Services as a high complexity laboratory under CLIA '88. The FDA has determined that such clearance or approval is not necessary. ??This test is used for clinical purposes. ??It should not be regarded as investigational or for research. ??Nevertheless, federal rules concerning the medical use of analyte specific reagents require that the following disclaimer be attached to the report: This test was developed and its performance characteristics determined by the Surgical Pathology Department [facility]. ??It has not been cleared or approved by the U. S. Food and Drug Administration. Note for decalcified specimens: This assay has not been validated on decalcified tissues. Results should be interpreted with caution given the possibility of false negativity on decalcified specimens Ailin Juarez MD LAB PATHOLOGY ORDERABLES F inal Result PATHOLOGY [facility] ([facility] [address] [place], [place] [id number] * H. pylori urease screen (JOSEPH test) Tissue (01/25/2024 10:25 AM CATAPULT AND ARRESTING GEAR OFFICER) H. pylori, rapid (JOSEPH) Negative Negative Tissue 01/25/2024 10:2 5 AM CATAPULT AND ARRESTING GEAR OFFICER 01/25/2024 11:57 AM CATAPULT AND ARRESTING GEAR OFFICER Ailin Juarez MD LAB MICROBIOLOGY - GENERAL ORDERABLES Final Result [facility]) 1 [facility] Department of Laboratories [place], [place] [id number] * EGD (01/25/2024 8:24 AM CATAPULT AND ARRESTING GEAR OFFICER) Anatomical Region Laterality Modality Other Narrative Procedure Note Ailin Juarez MD - 01/25/2024 8:[address] [facility] Patient Name: Alok Craig Procedure Date: 01/25/2024 8:24 AM Date of : 1960 Admit Type: Outpatient Age: 63 Gender: Female Attending MD: Ailin Juarez M.D. Room: [facility] ENDOSCOPY ROOM 1 Note Status: Finalized Patient Profile: This is a 63 year old female. History of gastroesophageal reflux disease and she iscurrently taking omeprazole 40 mg daily. She has occasional dysphagia felt in the lower part of the chest. EGDfor evaluation. Procedure: Upper GI endoscopy Indications: Dysphagia, Heartburn Referring MD: Conor Ruiz M.D. Providers: Ailin Juarez M.D. Impression: - Normal stomach. Biopsied for CLOtest. - Mild reflux esophagitis - Normal esophagus. Biopsied. Dilated. Recommendation: - Continue present medications. - Follow an antireflux regimen. Medicines: Monitored Anesthesia Care Complications: No immediate complications. Estimated Blood Loss: Estimated blood loss: none. Procedure: Pre-Anesthesia Assessment: - Prior to the procedure, a History and Physicalwas performed, and patient medications and allergieswere reviewed. The patient's tolerance of previous anesthesia was also reviewed. The risks andbenefits of the procedure and the sedation options and risks were discussed with the patient. All questions were answered, and informed consent was obtained. Prior Anticoagulants: The patient has taken noanticoagulant or antiplatelet agents. ASA Grade Assessment: Per anesthesia note and evaluation. After reviewing the risks and benefits, the patient was deemed in satisfactory condition to undergo the procedure. The benefits, risks, and alternatives to theprocedure and sedation were discussed and informed consentwas obtained. The scope was passed under direct vision. The Endoscope [id number] was introduced through the mouth, and advanced to the third partof duodenum. The upper GI endoscopy was accomplished without difficulty. The patient tolerated the procedure well. Findings: The examined duodenum was normal. Mucosa appeared normal. The entire examined stomach was normal. Biopsies were taken with acold forceps for Helicobacter pylori testing using CLOtest. Retroflexion stomach in the gastric fundus and cardia were normal The Z-line was irregular and was found 40 cm from the incisors suggesting mild reflux esophagitis. The examined esophagus body was normal. Biopsies were taken with acold forceps for histology. The scope was withdrawn. Dilation wasperformed with a Betancur dilator with no resistance at 52 Fr. Electronically signed by Ailin Juarez M.D. Ailin Juarez M.D. 01/25/2024 10:40:19 AM Number of Addenda: 0 Note Initiated On: 01/25/2024 8:24 AM Procedure Code(s): --- Professional --- 39433, Esophagogastroduodenoscopy, flexible, transoral; with biopsy, single or multiple 22046, Dilation of esophagus, by unguided sound or bougie, single or multiple passes Diagnosis Code(s): --- Professional --- K22.89, Other specified disease of esophagus R13.10, Dysphagia, unspecified R12, Heartburn CPT copyright 2020 [employer]. All rights reserved. The codes documented in this report are preliminary and upon knifer up reviewmay be revised to meet current compliance requirements. Recognized by the [employer] for promoting quality in endoscopy Ailin Juarez MD ENDOSCOPY PROCEDURES Final Result * XR Chest Pa Lateral 2 Views (01/09/2024 8:20 AM CATAPULT AND ARRESTING GEAR OFFICER) Anatomical Region Laterality Modality Body, Chest N/A Computed Radiogr aphy 01/09/2024 8:25 AM CATAPULT AND ARRESTING GEAR OFFICER Narrative 01/09/2024 8:25 AM CATAPULT AND ARRESTING GEAR OFFICER EXAM DESCRIPTION: XR CHEST PA LATERAL 2 VIEWS REASON FOR STUDY: cough, fever ?? Fever x 6 day, hx double mastectomy, former smoker. ?? TECHNIQUE: 2 ??radiographic view(s) of the chest. COMPARISON: Chest radiograph 12/27/2023 FINDINGS: The cardiomediastinal silhouette appears normal. ??There is right middle lobe pneumonia. ?? IMPRESSION: Right middle lobe pneumonia. ??Follow-up in 12 weeks to ensure resolution recommended. THIS IS AN ELECTRONICALLY VERIFIED FINAL REPORT 01/09/2024 8:25 AM - Electronically signed by ??Anton Arana M.D. JR: D: ??01/09/2024 8:25 AM T: ??01/09/2024 8:25 AM Report ID: [id number] Reading Location: ??[id number] Procedure Note Anton Arana MD - 01/09/2024 EXAM DESCRIPTION: XR CHEST PA LATERAL 2 VIEWS REASON FOR STUDY: cough, fever Fever x 6 day, hx double mastectomy, former smoker. TECHNIQUE: 2 radiographic view(s) of the chest. COMPARISON: Chest radiograph 12/27/2023 FINDINGS: The cardiomediastinal silhouette appears normal. There is right middlelobe pneumonia. IMPRESSION: Right middle lobe pneumonia. Follow-up in 12 weeks to ensure resolution recommended. THIS IS AN ELECTRONICALLY VERIFIED FINAL REPORT 01/09/2024 8:25 AM - Electronically signed by Anton Arana M.D. JR: Report ID: [id number] Reading Location: [place] [address] Olivia Flowers LAWN SERVICE SUPERVISOR IMG XR PROCEDURES Final Result * POC Influenza A/B, COVID-19 antigen (01/08/2024 3:12 PM CATAPULT AND ARRESTING GEAR OFFICER) Pathologist [facility] Influenza A Ag, POC Negative Negative [facility] Influenza B Ag, POC Negative Negative [facility] COVID-19 Ag POC Presumptive Negative Presumptive Negative, Invalid [facility] Nasal 01/08/2024 3:12 PM CATAPULT AND ARRESTING GEAR OFFICER Olivia Flowers LAWN SERVICE SUPERVISOR POINT OF CARE TEST ORDERABLES Final Result [facility] [address] [place] [address], [facility] * Troponin T high-sensitivity 4-hour (12/27/2023 6:46 PM CATAPULT AND ARRESTING GEAR OFFICER) Pathologist [facility] Trop T hs <6 <=14 ng/L Comment: Interpretive Data For further hscTnT resources including the diagnostic algorithm and an aid in interpretation, copy and paste this link: https://nrl.testcatalog.org/show/hsTrop Current Interpretive Data last revised 2019. Trop T hs delta 0 ng/L [facility] (PRECIOUS) Trop T hs interp Insignificant [facility] (PRECIOUS) Blood 12/27/2023 6:46 PM CATAPULT AND ARRESTING GEAR OFFICER 12/27/2023 6:55 PM CATAPULT AND ARRESTING GEAR OFFICER Perico Wagner MD LAB BLOOD ORDERABLES Final R esult Performing Organization Address City/[facility]/ZIP Co de Phone Number BETH SCRUGGS (PRECIOUS) 1 [facility] [place] [address] * Troponin T high-sensitivity 2-hour (12/27/2023 4:44 PM CATAPULT AND ARRESTING GEAR OFFICER) Trop T hs <6 <=14 ng/L Comment: Interpretive Data For further hscTnT resources including the diagnostic algorithm and an aid in interpretation, copy and paste this link: https://nrl.testcatalog.org/show/hsTrop Current Interpretive Data last revised 2019. Trop T hs delta 0 ng/L [facility] (PRECIOUS) Trop T hs interp Insignificant [facility] (PRECIOUS) Blood 12/27/2023 4:44 PM CATAPULT AND ARRESTING GEAR OFFICER 12/27/2023 4:46 PM CATAPULT AND ARRESTING GEAR OFFICER Perico Wagner MD LAB BLOOD ORDERABLES Final R esult Performing Organization Address [facility] Co de Phone Number BETH SCRUGGS (PRECIOUS) 1 [place] [address] * Urinalysis reflex to microscopic and culture Urine (12/27/2023 3:03 PM CATAPULT AND ARRESTING GEAR OFFICER) Color, ur Straw Yellow Clarity, ur Clear Clear [facility] (PRECIOUS) Specific gravity, ur 1.007 1.003 - 1.030 [facility] (PRECIOUS) pH, urine 7.5 [facility] (PRECIOUS) Comment: Interpretive Data ? Urine pH is affected by diet, medications, systemic acid-base disturbances, and renal tubular function. ??pH may affect urinary stone formation. ??For example, urine pH below 6.0 may help reduce the tendency for calcium phosphate stones and pH greater than 6.0 may reduce the tendency for uric acid stone formation. Source: V-Key Current Interpretive Data was last revised on 2017 Protein, ur ql Negative Negative [facility] (PRECIOUS) Glucose, ur ql Negative Negative [facility] (PRECIOUS) Ketones, ur Negative Negative [facility] (PRECIOUS) Bilirubin, ur Negative Negative [facility] (PRECIOUS) Blood, ur Negative Negative [facility] (PRECIOUS) Urobilinogen, ur <2.0 <2.0 mg/dL [facility] (PRECIOUS) Nitrite, ur Negative Negative [facility] (PRECIOUS) Leukocyte esterase, ur Negative Negative [facility] (PRECIOUS) UA reflex comment Reflex conditions for microscopic UA and culture not met. [facility] (PRECIOUS) Urine 12/27/2023 3:03 PM CATAPULT AND ARRESTING GEAR OFFICER 12/27/2023 3:06 PM CATAPULT AND ARRESTING GEAR OFFICER Faye [facility] LAB MICROBIOLOGY - GENERAL VIJAY HAIR Final Result Performing Organization Address [facility] Co de Phone Number BETH SCRUGGS ([place]) [address] [facility] [place] [address] * Troponin T high-sensitivity series (baseline, 2hr, 4hr, 6hr) (12/27/2023 2:37 PM CATAPULT AND ARRESTING GEAR OFFICER) Pathologist [facility] Trop T hs <6 <=14 ng/L Comment: Interpretive Data For further hscTnT resources including the diagnostic algorithm and an aid in interpretation, copy and paste this link: https://nrl.testcatalog.org/show/hsTrop Current Interpretive Data last revised 2019. Blood 12/27/2023 2:37 PM CATAPULT AND ARRESTING GEAR OFFICER 12/27/2023 2:42 PM CATAPULT AND ARRESTING GEAR OFFICER Perico Wagner MD LAB BLOOD ORDERABLES Final R esult [facility] ([place]) [address] [facility] [place] [address] * eGFR (12/27/2023 2:37 PM CATAPULT AND ARRESTING GEAR OFFICER) [facility] eGFR >90 >=60 mL/min/1. 73 m2 Comment: Interpretive Data Reference Interval Normal ?>/= 90 mL/min/1.73m2 Mildly decreased* ? 60 - 89 mL/min/1.73m2 Mildly to moderately decreased ?45 - 59 mL/min/1.73m2 Moderately to severely decreased ??30 - 44 mL/min/1.73m2 Severely decreased ?15 - 29 mL/min/1.73m2 Kidney Failure ?< 15 ??mL/min/1.73m2 *Relative to young adult level Estimated glomerular filtration rate is determined by the 2020 CKD-EPI equation recommended by the National Kidney Foundation (A Unifying Approach to GFR Estimation: Recommendations of the NKF-ASK Task Force on Reassessing the Inclusion of Race in Diagnosing Kidney Disease, JASN 2020). The CKD-EPI equation should not be used for patients with unstable renal function and has not been validated in children and those over 70. Current interpretive data was last reviewed 2020. Blood 12/27/2023 2:37 PM CATAPULT AND ARRESTING GEAR OFFICER 12/27/2023 2:42 PM CATAPULT AND ARRESTING GEAR OFFICER Perico Wagner MD LAB BLOOD ORDERABLES Final R esult [facility] ([place]) [address] [facility] Department of Laboratories [place], [place] [id number] * Differential, auto (12/27/2023 2:37 PM CATAPULT AND ARRESTING GEAR OFFICER) Neutrophil abs 3.0 1.5 - 6.5 K/cumm Imm gran abs 0.0 0.0 - 0.1 K/cumm [facility] (PRECIOUS) Lymphocyte abs 2.2 0.8 - 3.3 K/cumm [facility] (PRECIOUS) Monocyte abs 0.4 0.2 - 0.8 K/cumm [facility] (PRECIOUS) Eosinophil abs 0.5 0.0 - 0.5 K/cumm [facility] (PRECIOUS) Basophil abs 0.0 0.0 - 0.1 K/cumm [facility] (PRECIOUS) Neutrophil pct 49.7 % [facility] (PRECIOUS) Comment: Interpretive Data Percent cell count reference ranges are not reported, since discordance with absolute values may lead to misinterpretation of CBC data. Current Interpretive Data was last revised on 2017. Imm gran pct 0.2 % [facility] (PRECIOUS) Comment: Interpretive Data Percent cell count reference ranges are not reported, since discordance with absolute values may lead to misinterpretation of CBC data. Current Interpretive Data was last revised on 2017. Lymphocyte pct 35.8 % [facility] (PRECIOUS) Comment: Interpretive Data Percent cell count reference ranges are not reported, since discordance with absolute values may lead to misinterpretation of CBC data. Current Interpretive Data was last revised on 2017. Monocyte pct 6.2 % [facility] (PRECIOUS) Comment: Interpretive Data Percent cell count reference ranges are not reported, since discordance with absolute values may lead to misinterpretation of CBC data. Current Interpretive Data was last revised on 2017. Eosinophil pct 7.4 % [facility] (PRECIOUS) Comment: Interpretive Data Percent cell count reference ranges are not reported, since discordance with absolute values may lead to misinterpretation of CBC data. Current Interpretive Data was last revised on 2017. Basophil pct 0.7 % [facility] (PRECIOUS) Comment: Interpretive Data Percent cell count reference ranges are not reported, since discordance with absolute values may lead to misinterpretation of CBC data. Current Interpretive Data was last revised on 2017. Blood 12/27/2023 2:37 PM CATAPULT AND ARRESTING GEAR OFFICER 12/27/2023 2:42 PM CATAPULT AND ARRESTING GEAR OFFICER us Perico Wagner MD LAB BLOOD ORDERABLES Final R esult [facility] (PRECIOUS) [address] [facility] Department [place] [address] * (ABNORMAL) CBC with auto differential (12/27/2023 2:37 PM CATAPULT AND ARRESTING GEAR OFFICER) WBC 6.1 3.8 - 9.9 K/cumm Hgb 12.8 11.9 - 15.5 g/dL [facility] (PRECIOUS) Hct 37.9 35.6 - 45.5 % [facility] (PRECIOUS) Plt 316 150 - 400 K/cumm [facility] (PRECIOUS) MPV 8.2(L) 9.1 - 12.3 fL [facility] (PRECIOUS) RBC 4.28 3.90 - 5.20 M/cumm [facility] (PRECIOUS) MCV 88.6 81.3 - 96.4 fL [facility] (PRECIOUS) MCH 29.9 27.1 - 33.3 pg [facility] (PRECIOUS) MCHC 33.8 32.3 - 35.7 g/dL [facility] (PRECIOUS) RDW CV 12.6 11.1 - 14.9 % [facility] (PRECIOUS) RDW SD 40.9 35.7 - 48.1 fL [facility] (PRECIOUS) NRBC abs 0.00 0.00 - 0.01 K/cumm [facility] (PRECIOUS) Blood (Blood, Venous) 12/27/2023 2:37 PM CATAPULT AND ARRESTING GEAR OFFICER 12/27/2023 2:42 PM CATAPULT AND ARRESTING GEAR OFFICER us Perico Wagner MD LAB BLOOD ORDERABLES Final R esult [facility] (PRECIOUS) [address] [facility] Department [place] [address] * Comprehensive metabolic panel (12/27/2023 2:37 PM CATAPULT AND ARRESTING GEAR OFFICER) Sodium 139 135 - 145 mmol/L Potassium, pl 4.0 3.3 - 4.9 mmol/L [facility] (PRECIOUS) Chloride 104 97 - 110 mmol/L [facility] (PRECIOUS) CO2 25 22 - 32 mmol/L [facility] (PRECIOUS) Anion gap 11 2 - 15 mmol/L [facility] (PRECIOUS) BUN 7 6 - 25 mg/dL [facility] (PRECIOUS) Creatinine 0.67 0.60 - 1.10 mg/dL [facility] (PRECIOUS) Glucose 108 70 - 199 mg/dL [facility] (PRECIOUS) Comment: Interpretive Data Fasting glucose >/= 126 mg/dl is diagnostic for diabetes. ?? Fasting is defined as no caloric intake for at least 8 hours. Fasting glucose between 100 mg/dl to 125 mg/dl is diagnostic of prediabetes. In a patient with classic symptoms of hyperglycemia or hyperglycemic crisis, a random glucose >/= 200 mg/dl is diagnostic for diabetes. In the absence of unequivocal hyperglycemia, results should be confirmed by repeat testing. The classification and Diagnosis of Diabetes Diabetes Care 2021; 46: S19-S40. Current interpretive data was last revised 2022. Calcium 8.8 8.5 - 10.3 mg/dL [facility] (PRECIOUS) Bilirubin, total <0.2 0.1 - 1.2 mg/dL [facility] (PRECIOUS) Protein, pl 7.3 6.5 - 8.5 g/dL [facility] (PRECIOUS) Albumin 4.4 3.5 - 5.0 g/dL [facility] (PRECIOUS) Alk phos 101 40 - 130 Units/L [facility] (PRECIOUS) ALT 32 7 - 45 Units/L [facility] (PRECIOUS) AST 25 10 - 45 Units/L [facility] (PRECIOUS) Comment:Slightly Hemolyzed S pecimen Blood 12/27/2023 2:37 PM CATAPULT AND ARRESTING GEAR OFFICER 12/27/2023 2:42 PM CATAPULT AND ARRESTING GEAR OFFICER Perico Wagner MD LAB BLOOD ORDERABLES Final R esult [facility] ([place]) [address] [facility] Department [place] [address] * XR Chest 1 Vw Portable (if patient condition/safety warrant portable) (12/27/2023 1:24 PM CATAPULT AND ARRESTING GEAR OFFICER) Anatomical Region Laterality Modality Body, Chest N/A Computed Radiogr aphy 12/27/2023 1:43 PM CATAPULT AND ARRESTING GEAR OFFICER Narrative 12/27/2023 1:44 PM CATAPULT AND ARRESTING GEAR OFFICER EXAM DESCRIPTION: XR CHEST 1 VIEW REASON FOR STUDY: chest pain ?? Pt to ED for c/o chest pressure x 1 week. Pt reports pain worsened today. Pt reports hx of SVT and A fib. ?? Pt recently got a heart cath procedure ?? TECHNIQUE: Single frontal ??radiographic view(s) of the chest. COMPARISON: 11/10/2023 FINDINGS: The heart, mediastinum, and pulmonary vasculature are grossly stable. ??There is no definite evidence of a pneumothorax. ??There is no definite evidence of focal consolidation or pleural effusion. The osseous structures are grossly stable. ??Right breast prosthesis is noted. ?? Postsurgical changes of left mastectomy are noted. IMPRESSION: No definite evidence of acute cardiopulmonary process. THIS IS AN ELECTRONICALLY VERIFIED FINAL REPORT 12/27/2023 1:44 PM - Electronically signed by ??Olvin Stauffer D.O. PS: PS D: ??12/27/2023 1:44 PM T: ??12/27/2023 1:44 PM Report ID: [id number] Reading Location: ??[id number] Procedure Note Olvin Stauffer, DO - 12/27/2023 EXAM DESCRIPTION: XR CHEST 1 VIEW REASON FOR STUDY: chest pain Pt to ED for c/o chest pressure x 1 week. Pt reports pain worsened today.Pt reports hx of SVT and A fib. Pt recently got a heart cath procedure TECHNIQUE: Single frontal radiographic view(s) of the chest. COMPARISON: 11/10/2023 FINDINGS: The heart, mediastinum, and pulmonary vasculature are grossly stable.There is no definite evidence of a pneumothorax. There is no definite evidenceof focal consolidation or pleural effusion. The osseous structures are grossly stable. Right breast prosthesis isnoted. Postsurgical changes of left mastectomy are noted. IMPRESSION: No definite evidence of acute cardiopulmonary process. THIS IS AN ELECTRONICALLY VERIFIED FINAL REPORT 12/27/2023 1:44 PM - Electronically signed by Olvin Stauffer D.O. PS: PS Report ID: [id number] Reading Location: [id number] us Perico Wagner MD IMG XR PROCEDURES Final Resu lt * ECG 12 lead (12/27/2023 1:10 PM CATAPULT AND ARRESTING GEAR OFFICER) 12/27/2023 1:10 PM CATAPULT AND ARRESTING GEAR OFFICER Narrative [facility] - 12/27/2023 2:31 PM CATAPULT AND ARRESTING GEAR OFFICER Vent Rate: 82 bpm RR Interval: 728 msec AR Interval: 144 msec QRS Duration: 98 msec QT Interval: 362 msec QTC Interval: 400 msec P-R-T [place]: 84 - 86 - 88 degrees IMPRESSION: SINUS RHYTHM Probable early repolarization Compared to prior EKG, heart rate is now faster Electronically Signed By: Dr Christian Baptiste Perico Wagner MD ECG ORDERABLES Final Result [facility] * CT Lung Cancer Screening (11/10/2023 7:05 AM CDT) Anatomical Region Laterality Modality Chest N/A Computed Tomogra phy 11/14/2023 9:04 AM CDT Narrative 11/14/2023 9:32 AM CDT EXAM DESCRIPTION: ?? CT LUNG CANCER SCREENING REASON FOR STUDY: Screening CT of the chest in a ??former ??smoker with a ??61.5 ?? pack year smoking history. Additional history: ??None. TECHNIQUE: Low dose CT scan of the chest was performed without intravenous contrast using helical scanning technique. The exam extends from the lung apices through the lung bases. Automatic exposure control was used as a dose optimization technique. NOTE: This study was performed for the specific purposes of lung cancer screening and is not an alternative to diagnostic chest CT. RADIATION DOSE: CT dose index volume (CTDIvol) = ?? 1.52 ??mGy COMPARISON: CT chest 07/23/2022 FINDINGS: SMOKING RELATED LUNG DISEASE: ?? Mild pulmonary emphysema. LUNG NODULES: ?? Noncalcified 4 mm nodule in the superior segment of the left lower lobe (image 68) is unchanged. ??Noncalcified perifissural 3 mm nodule in the right middle lobe (image 257) is unchanged. ??No new pulmonary nodule. PLEURAE: ?? No pneumothorax or pleural effusion. CORONARY ARTERY CALCIFICATION: ??Moderate MEDIASTINUM/RL: ?? No mediastinal or hilar lymphadenopathy within the limitations of a noncontrast exam. ? HEART: ?? Heart size is within normal limits. ??Small pericardial effusion is unchanged. VASCULATURE: ?? No thoracic aortic aneurysm. AXILLAE: ?? No lymphadenopathy. CHEST WALL: ?? Prior left mastectomy. ??Surgical clips in the left axilla. ?? Right breast implant. HARDWARE/LINES/TUBES: ?? None. UPPER ABDOMEN: ?? No significant abnormality. MUSCULOSKELETAL: ?? Mild to moderate thoracic spondylosis. ?? IMPRESSION: Noncalcified pulmonary nodules measuring up to 4 mm are unchanged. ??No new pulmonary nodule. Mild pulmonary emphysema. Lung-RADS category ??2: Benign appearance or behavior. Recommendation: ??Low dose Screening CT of chest in 12 months. THIS IS AN ELECTRONICALLY VERIFIED FINAL REPORT 11/14/2023 9:32 AM - Electronically signed by ??Tylor Vásquez M.D. LB: JORGE D: ??11/14/2023 9:32 AM T: ??11/14/2023 9:32 AM Report ID: [id number] Reading Location: ??[id number] Procedure Note Tylor Vásquez MD - 11/14/2023 EXAM DESCRIPTION: CT LUNG CANCER SCREENING REASON FOR STUDY: Screening CT of the chest in a former smoker with a61.5 pack year smoking history. Additional history: None. TECHNIQUE: Low dose CT scan of the chest was performed without intravenous contrast using helical scanning technique. The exam extends from the lung apices through the lung bases. Automatic exposure control was used as adose optimization technique. NOTE: This study was performed for the specific purposes of lung cancer screening and is not an alternative to diagnostic chest CT. RADIATION DOSE: CT dose index volume (CTDIvol) = 1.52 mGy COMPARISON: CT chest 07/23/2022 FINDINGS: SMOKING RELATED LUNG DISEASE: Mild pulmonary emphysema. LUNG NODULES: Noncalcified 4 mm nodule in the superior segment of theleft lower lobe (image 68) is unchanged. Noncalcified perifissural 3 mm nodulein the right middle lobe (image 257) is unchanged. No new pulmonary nodule. PLEURAE: No pneumothorax or pleural effusion. CORONARY ARTERY CALCIFICATION: Moderate MEDIASTINUM/RL: No mediastinal or hilar lymphadenopathy within the limitations of a noncontrast exam. HEART: Heart size is within normal limits. Small pericardial effusionis unchanged. VASCULATURE: No thoracic aortic aneurysm. AXILLAE: No lymphadenopathy. CHEST WALL: Prior left mastectomy. Surgical clips in the left axilla. Right breast implant. HARDWARE/LINES/TUBES: None. UPPER ABDOMEN: No significant abnormality. MUSCULOSKELETAL: Mild to moderate thoracic spondylosis. IMPRESSION: Noncalcified pulmonary nodules measuring up to 4 mm are unchanged. Nonew pulmonary nodule. Mild pulmonary emphysema. Lung-RADS category 2: Benign appearance or behavior. Recommendation: Low dose Screening CT of chest in 12 months. THIS IS AN ELECTRONICALLY VERIFIED FINAL REPORT 11/14/2023 9:32 AM - Electronically signed by Tylor Vásquez M.D. LB: JORGE Report ID: [id number] Reading Location: [place] [address] Adri Carlson NP IMG CT PROCEDURES Final Re sult * Colonoscopy (05/10/2023 8:24 AM CDT) Anatomical Region Laterality Modality Other Narrative Procedure Note Ailin Juarez MD - 05/10/2023 8:[address] [facility] Patient Name: Alok Craig Procedure Date: 05/10/2023 8:24 AM Date of : 1960 Admit Type: Outpatient Age: 62 Gender: Female Attending MD: Ailin Juarez M.D. Room: [facility] ENDOSCOPY ROOM 1 Note Status: Finalized Patient Profile: This is a 62 year old female. No family history of colon cancer. Last colonoscopy was more than 10years ago. Procedure: Colonoscopy Indications: Screening for colorectal malignant neoplasm, Last colonoscopy: date unknown Referring MD: Conor Ruiz M.D. Providers: Ailin Juarez M.D. Impression: - Diverticulosis in the entire examined colonalthough severe in the descending colon. - The entire examined colon is normal other. - Internal hemorrhoids. - No specimens collected. Recommendation: - Repeat colonoscopy in 10 years for screening purposes. - Continue present medications. Medicines: Monitored Anesthesia Care Complications: No immediate complications. Estimated Blood Loss: Estimated blood loss: none. Procedure: Pre-Anesthesia Assessment: - Prior to the procedure, a History and Physicalwas performed, and patient medications and allergieswere reviewed. The patient's tolerance of previous anesthesia was also reviewed. The risks andbenefits of the procedure and the sedation options and risks were discussed with the patient. All questions were answered, and informed consent was obtained. Prior Anticoagulants: The patient has taken noanticoagulant or antiplatelet agents. ASA Grade Assessment: Per anesthesia note and evaluation. After reviewing the risks and benefits, the patient was deemed in satisfactory condition to undergo the procedure. The benefits, risks and alternatives of theprocedure and sedation were discussed and informed consentwas obtained. All questions were answered. Please referto the signed informed consent document in the medical record. The bowel preparation used was Miralax and bisacodyl tablets via split dose instruction. The scope was passed under direct vision. The Pediatric Colonoscope [id number]-[id number] was introducedthrough the anus and advanced to the the cecum, identifiedby appendiceal orifice and ileocecal valve. Thequality of the bowel preparation was good. Bowel prep was administered using a split dose. Findings: The perianal and digital rectal examinations were normal. The cecum appeared normal. Multiple small and large-mouthed diverticula were found in thesigmoid colon and few small scattered diverticuli noted in the descendingcolon and transverse colon. The colon (entire examined portion) appeared normal otherwise. Nopolyps and no mass lesions noted.. Internal hemorrhoids were found during retroflexion. The hemorrhoids were small. Electronically signed by Ailin Juarez M.D. Ailin Juarez M.D. 05/10/2023 10:34:48 AM Number of Addenda: 0 Note Initiated On: 05/10/2023 8:24 AM Procedure Code(s): --- Professional --- 01463, Colonoscopy, flexible; diagnostic, including collection of specimen(s) by brushing or washing, when performed (separateprocedure) Diagnosis Code(s): --- Professional --- Z12.11, Encounter for screening for malignant neoplasm of colon K64.8, Other hemorrhoids K57.30, Diverticulosis of large intestine without perforation orabscess without bleeding CPT copyright 2020 [employer]. All rights reserved. The codes documented in this report are preliminary and upon knifer up reviewmay be revised to meet current compliance requirements. Recognized by the [employer] for promoting quality in endoscopy Ailin Juarez MD ENDOSCOPY PROCEDURES Final Result * Screening Mammogram W Cedric (07/16/2015 11:02 AM CDT) Anatomical Region Laterality Modality Breast N/A Mammography 07/16/2015 11:0 2 AM CDT Narrative 07/16/2015 1:05 PM CDT MANDY HINOJOSA M.D. FINAL REPORT ACC# ??Date Time ??Exam [id number] Jul 16, 2015 11:02:00 [facility] [id number] Bilateral screen w cedric ?? Technologist(s): Elizabeth Bryan; ; EXAMINATION: ??Mammogram Technique: Bilateral Full-Field Digital Screening Mammogram and Digital Breast Tomosynthesis were performed. ??Views obtained: ??bilateral craniocaudal and bilateral mediolateral oblique. ??Computer Aided Detection of the 2D images was performed with MedCPU.3 version 9.3. Mammogram Findings: The present examination has been compared to prior imaging studies performed at [facility] on 12/29/2012 and 07/12/2012. There are scattered areas of fibroglandular density. There are new heterogeneous calcifications in the middle central area of the left breast. There is no suspicious abnormality in the right breast. IMPRESSION: ??New calcifications in the left breast require additional evaluation. Additional views are recommended. Changes of prior breast conservation therapy are noted. OVERALL FINAL ASSESSMENT: BI-RADS CATEGORY 0: ??Incomplete: ??Need additional imaging evaluation. Requested By: Dictated By: ?? MANDY HINOJOSA M.D. ??on Jul ??2015 ??1:05P This document has been electronically signed by: MANDY HINOJOSA M.D. on Jul ??2015 ??1:05P [id number] Procedure Note Provider, MD Shantell - 06/02/2016 MANDY HINOJOSA M.D. FINAL REPORT ACC# Date Time Exam [id number] Jul 16, 2015 11:02:00 [facility] [id number] Bilateral screen w cedric Technologist(s): Elizabeth Bryan; ; EXAMINATION: Mammogram Technique: Bilateral Full-Field Digital Screening Mammogram and Digital Breast Tomosynthesis were performed. Views obtained: bilateral craniocaudaland bilateral mediolateral oblique. Computer Aided Detection of the 2Dimages was performed with eventblimp 1.3 version 9.3. Mammogram Findings: The present examination has been compared to prior imaging studies performed at [facility] on 12/29/2012 and 07/12/2012. There are scattered areas of fibroglandular density. There are new heterogeneous calcifications in the middle central area of the left breast. There is no suspicious abnormality in the right breast. IMPRESSION: New calcifications in the left breast require additional evaluation. Additional views are recommended. Changes of prior breast conservation therapy are noted. OVERALL FINAL ASSESSMENT: BI-RADS CATEGORY 0: Incomplete: Need additional imaging evaluation. Requested By: Dictated By: MANDY HINOJOSA M.D. on Jul 16 2015 1:05P This document has been electronically signed by: MANDY HINOJOSA M.D. on Jul 16 2015 1:05P [id number] Historical Provider MD P[facility]AEZ MAMMO PROCEDURES Peggy l Result from Last 3 Months or Most Recently Relevant to Health Maintenance Insurance [facility] PL[facility] PL[facility] PL[facility] [employer] Advance Directives For more information, please contact: [phone] * Full Code (Latest Code Status on File) Date Activated Date Inactivated Comments 01/25/2024 8:20 AM 01/25/2024 3:29 PM * Full Code Date Activated Date Inactivated Comments 01/25/2024 8:20 AM 01/25/2024 8:20 AM * Full Code Date Activated Date Inactivated Comments 08/04/2023 9:01 AM 08/04/2023 5:37 PM * Full Code Date Activated Date Inactivated Comments 05/10/2023 9:05 AM 05/10/2023 3:38 PM * Full Code Date Activated Date Inactivated Comments 05/28/2020 6:03 AM 05/29/2020 9:09 PM Care Teams Acid Tank Liner Relationship Specialty Start Date End Date Conor [place] [address] PCP - General 05/07/16 Corky Carias MD [address] [place] [id number] Surgeon General Surgery 05/29/20 Grazyna Valdivia NP [address] [place] [id number] Nurse Practitioner Family Medicine 05/29/20 Aletha Lee, PT Physical Therapist Physical Therapy 07/20/21
--- OUTSIDE RECORDS SUMMARY | 2024-03-10 09:11 | XMS_ITS | Clinical Summary ---
Author Organization [facility] Address [address] [place] [address] Phone Care Team Providers Care Boomboat Operator Name Role Phone Conor Ruiz MD Primary Care Provider [phone] Allergies Active Allergy Reactions Criticality Noted Date Comments Diltiazem Palpitations 01/28/2020 Fentanyl Anaphylaxis 01/28/2020 Methimazole Anaphylaxis,Unknown High 01/28/2020 TAPAZOLE Promethazine Swelling Medium 01/28/2020 Phenergan Varenicline Swelling Medium 01/28/2020 Medications atenolol (TENORMIN) 50 MG Tablet TK 1 T PO QD 0 Active levothyroxine (SYNTHROID) 112 MCG Tablet Take 112 mcg by mouth daily. 0 Active omeprazole (PriLOSEC) 40 MG CAPSULE DELAYED RELEASE 0 Active azithromycin (Zithromax Z-Mike) 250 MG TabletIndicatio ns:Sinus congestion 2 tab(s) daily for 1 day, then 1 tab(s) daily for days 2-5. 6 Tab 0 Active Additional Information Patient not taking.Reported on 02/03/2021 ALPRAZolam (XANAX) 0.25 MG Tablet TAKE 1 TAB;ET(0.25 MG) BY MOUTH THREE TIMES DAILY NEEDED FOR ANXIETY 1 Active Multiple Vitamin (MULTI-VITAMIN PO) Take by mouth daily. Active CALCIUM PO Take by mouth daily. Active VITAMIN D PO Take by mouth daily. Active acetaminophen (TYLENOL) 500 MG Tablet Take 500 mg by mouth every 4 hours as needed. 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 H/o breast ca x2 & uterine ca. Whole body scan & labs ordered. Will contact w/results once rec'd. Will continue to monitor weight & intake. Palpitations 08/04/2018 Screening for diabetes mellitus 08/04/2018 Overview (01/28/2020): Last Assessment & Plan: Lipid panel ordered; will call w/results when received. Reviewed diet/exercise recommendations. Last Assessment & Plan: A1c ordered; will contact w/results once rec'd. Encounter for breast reconstruction following ma stectomy 07/11/2018 Status post breast reconstruction 07/11/2018 Hypothyroidism 04/29/2017 Overview (01/28/2020): Last Assessment & Plan: S/p VELARDE treatment in 1999 Patient is clinically euthyroid, TSH of 1.2 on 11/23/19 Plan: Continue Levothyroxine 112 mcg/day The proper way of taking Levothyroxine reviewed with patient. Ductal carcinoma in situ (DCIS) of breast 2015 Overview (01/28/2020): Ductal carcinoma in situ (DCIS) of left breast Cigarette smoker 07/20/2015 Overview (01/28/2020): Last Assessment & Plan: She does not wish to stop smoking at this time. 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 Tobacco dependence syndrome 06/23/2013 Overview (01/28/2020): TOBACCO USE DISORDER Last Assessment & Plan: Precontemplative. Encouraged complete smoking cessation. Discussed different types of medications & [id number] aides to help with cessation. Gastroesophageal reflux disease 12/25/2012 Overview (01/28/2020): Last Assessment & Plan: Continue omeprazole Continue to work on smoking cessation Consider surgery to reduce Alexis edema after smoking cessation Social History Tobacco Use Types Packs/Day Years Used Date Smoking Tobacco: Every Day Cigarettes Smokeless Tobacco: Never Alcohol Use Standard Drinks/Week Comments Yes 0 (1 standard drink = 0.6 oz pur e alcohol) Rarely Comments No Sex and Gender Information Value Date Recorded Sex Assigned at Not on file Legal Sex Female 8:06 PM CDT Gender Identity Not on file Sexual Orientation Not on file Last Filed Vital Signs Vital Sign Reading Time Taken Comments Blood Pressure 116/68 02/03/2021 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 Pulse 78 02/03/2021 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 Temperature 36.2 ??C (97.1 ??F) 02/03/2021 2:49 PM CS T Respiratory Rate 16 02/03/2021 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 Oxygen Saturation 96% 02/03/2021 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 Inhaled Oxygen Concentration - - Weight 68 kg (150 lb) 02/03/2021 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 Height 172.7 cm (5' 8 ) 02/03/2021 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 Body Mass Index 22.81 02/03/2021 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 Plan of Treatment Health Maintenance Due Date Last Done Comments Hepatitis C Virus (HCV) Screening 1960 TdaP Immunization 1960 Colonoscopy 09/04/2007 Colorectal Cancer Screening 09/04/2007 Cologuard 2012 Immunochemical Fecal Occult Blood 2012 Pneumococcal Immunization (5 0+ years) (1 of 1 - PCV) 2012 Zoster Immunization (1 of 2) 2012 Influenza Immunization (#1) 2023 SARS-COV-2 Immunization ( season) 2023 04/22/2020, 03/19/2020 Respiratory Syncytial Virus (RSV) Immunization (Adult) (1 - 1-dose 75+ series) 2037 Hepatitis B Immunization Aged Out No longer eligible based on patient's age to complete this topic Meningococcal Immunization (ACWY) Aged Out No longer eligible b ased on patient's age to complete this topic Pneumococcal Immunization Combined Aged Out No longer eligible b ased on patient's age to complete this topic Rotavirus Immunization Aged Out No lo nger eligible based on patient's age to complete this topic Care Teams Boomboat Operator Relationship Specialty Start Date End Date Conor Ruiz MD [address] [place] [address] PCP - General Internal Medicine 01/28/20
--- OUTSIDE RECORDS SUMMARY | 2024-03-10 09:11 | XMS_ITS | Clinical Summary ---
Author Organization [facility] Address [address] [place] [address] Care Team Providers Care [employer] Professor Name Role Phone Conor Ruiz MD Primary Care Provider [phone] Corky Carias MD Unavailable [phone] Grazyna Valdivia NP Unavailable Aletha Lee PT Unavailable Unavaila ble Allergies Active Allergy Reactions Criticality Noted Date [...] 1 tablet (112 mcg total) by mouth clerical specialist before breakfast 90 tablet 1 4 Active [...] 02/28/2024 Assessment & Plan (02/28/2024 9:33 AM ROOM SERVICE MANAGER): F/u cxr to ensure clearing and will follow response. NO f/c, no cough. LUQ pain 02/28/2024 Assessment & Plan (02/28/2024 9:33 AM ROOM SERVICE MANAGER): Reviewed differnitia.. Most consistent with neuropathic pain [...] 10/25/2023 Assessment & Plan (02/28/2024 9:32 AM ROOM SERVICE MANAGER): Stable on metoprolol XL and will follow response. Assessment & Plan (10/25/2023 7:59 AM CDT): Stable. Continue metoprolol. Will continue to monitor. Lipid screening 10/25/2023 Assessment & Plan (02/28/2024 9:33 AM ROOM SERVICE MANAGER): Continue on montioring lipid panel. Assessment & Plan (10/25/2023 8:01 AM CDT): Lipid panel reviewed. Reviewed lifestyle recommendations. Abnormal stress test 07/29/2023 History of breast cancer 03/09/2023 Assessment & Plan (03/09/2023 3:50 PM ROOM SERVICE MANAGER): Status post bilateral mastectomy. See plan as above. Lymphadenopathy, axillary 03/09/2023 Assessment & Plan (03/09/2023 3:50 PM ROOM SERVICE MANAGER): Ultrasound ordered for evaluation. CA 125 ordered [...] 02/15/2022 Assessment & Plan (02/15/2022 5:24 PM ROOM SERVICE MANAGER): Right thigh abscess noted in 11/2021 that [...] 02/15/2022 Assessment & Plan (02/15/2022 5:24 PM ROOM SERVICE MANAGER): Referral placed, patient aware to call and schedule. Chronic left-sided low back pain with left-sided sciatica 02/15/2022 Assessment & Plan (02/15/2022 1:10 PM ROOM SERVICE MANAGER): Patient still experiencing pain post physical therapy [...] 03/06/2021 Assessment & Plan (03/18/2022 9:12 AM ROOM SERVICE MANAGER): Left adrenal adenoma since 2015 Stable in size based on CT on 05/14/20 No sign of hormone dysfunction- pheochromocytoma and hyper-mei were ruled out by labs in 2020 Assessment & Plan (03/06/2021 9:30 AM ROOM SERVICE MANAGER): Left adrenal adenoma since 2016 Stable in [...] 03/05/2019 Assessment & Plan (02/15/2022 5:25 PM ROOM SERVICE MANAGER): Symptoms stable, requesting refill of alprazolam. Patient [...] flags. Assessment & Plan (03/05/2019 4:35 PM ROOM SERVICE MANAGER): Will continue current prescribed medications and she seems to be effective for her. BMI 27.0-27.9,adult 08/04/2018 Assessment & Plan (02/15/2022 1:14 PM ROOM SERVICE MANAGER): Discussed healthy diet and importance of regular [...] 04/29/2017 Assessment & Plan (02/28/2024 9:32 AM ROOM SERVICE MANAGER): Continue on thyroid medication replacmeent and will follow response. Clincialy and chemically euthyorid. Assessment & Plan (10/25/2023 8:09 AM CDT): Status post VELARDE treatment in 1999. Clinically and chemically euthyroid. Will continue to monitor. Assessment & Plan (03/18/2022 8:57 AM ROOM SERVICE MANAGER): S/p VELARDE treatment in 1999 Patient is clinically euthyroid, TSH of 2.8 on 03/06/21 Plan: Continue Levothyroxine 112 mcg/day The proper way of taking Levothyroxine reviewed with patient. Check TSH I will adjust the dose if needed. Assessment & Plan (03/06/2021 9:28 AM ROOM SERVICE MANAGER): S/p VELARDE treatment in 1999 Patient is [...] DISORDER Assessment & Plan (03/09/2023 3:50 PM ROOM SERVICE MANAGER): Congratulations on cessation! Keep up the great work! Assessment & Plan (02/15/2022 5:23 PM ROOM SERVICE MANAGER): Encouraged complete cessation. Patient due for annual CT lung cancer screening, ordered today. Assessment & Plan (06/16/2020 2:12 PM CDT): Precontemplative. Encouraged complete smoking cessation. Discussed different types of medications & zcvz-nfb-mjhyxiv aides to help with cessation. Assessment & Plan (10/05/2019 2:46 PM CDT): Precontemplative. Encouraged complete smoking cessation. Discussed different types of medications & wxni-dnv-dboyadw aides to help with cessation. Assessment & Plan (08/04/2018 10:39 AM CDT): Precontemplative. Encouraged complete smoking cessation. Discussed different types of medications & xvsv-pak-oauevdq aides to help with cessation. CT lung cancer screening ordered. Will contact w/results once rec'd. Hypertension 06/23/2013 Overview (05/12/2016): HYPERTENSION NOS Assessment & Plan (03/09/2023 3:49 PM ROOM SERVICE MANAGER): Normotensive. Continue with lifestyle management. Will continue to monitor. Assessment & Plan (03/18/2022 9:11 AM ROOM SERVICE MANAGER): Controlled with medication - continue medication per PCP - low salt diet. Assessment & Plan (03/06/2021 8:58 AM ROOM SERVICE MANAGER): Controlled with medication - continue medication per [...] following imaging today. BMI 25.0-25.9,adult 06/16/2020 06/05/19 Assessment & Plan (06/16/2020 3:41 PM CDT): [...] 10/05/2019 Assessment & Plan (03/05/2019 4:34 PM ROOM SERVICE MANAGER): Advised to try and stop smoking. Dizziness [...] 06/16/2020 Assessment & Plan (03/05/2019 4:35 PM ROOM SERVICE MANAGER): She does not wish to stop smoking at this time. Hyperthyroidism 06/23/2013 04/29/2017 Overview (05/12/2016): Hyperthyroidism Gastrointestinal tract bleed 01/10/2012 10/05/2019 Headache(784.0) 06/15/2010 10/05/2019 Encounters Date Type Department Care Team Description 02/21/19 8:26 AM ROOM SERVICE MANAGER - 02/21/19 11:59 PM ROOM SERVICE MANAGER Hospital Encounter [facility] [id number] [place] [id number] LUQ pain Discharge Disposition: Discharge to home or self care 02/13/19 3:15 PM ROOM SERVICE MANAGER Office Visit [facility] Primary Care at [address] [address] Conor Ruiz MD Essential hypertension (Primary Dx); Lipid screening; Hypothyroidism, unspecified type; Pneumonia of right middle lobe due to infectious organism; LUQ pain 02/12/19 Telephone [facility] Surgery [address] [facility] Floor [address] [place] [address] Elisabeth Weber MD 02/02/20 Telephone [facility] [address] [address] Conor Ruiz MD Medical Question/Miscellaneous 01/25/20 10:07 AM ROOM SERVICE MANAGER Anesthesia Event [address] [address] Jey Whatley MD 01/25/20 9:30 AM ROOM SERVICE MANAGER - 01/25/20 24 10:00 AM ROOM SERVICE MANAGER Surgery [address] [address] Ailin Juarez MD ESOPHAGOGASTRODUODENOSCOPY BIOPSY 01/25/20 8:15 AM ROOM SERVICE MANAGER - 01/25/20 24 11:05 AM ROOM SERVICE MANAGER Hospital Encounter [address] [address] Ailin Juarez MD Gastroesophageal reflux disease, unspecified whether esophagitis present Discharge Disposition: Discharge to home or self care 01/12/20 Nurse Triage [facility] [address] [address] Conor Ruiz MD 01/09/20 8:12 AM ROOM SERVICE MANAGER - 01/09/20 11:59 PM ROOM SERVICE MANAGER Hospital Encounter [facility] [address] [place] [address] Acute cough; Upper respiratory infection, viral; Fever, unspecified fever cause Discharge Disposition: Discharge to home or self care 01/09/20 Telephone [facility] at [address] [place] [phone] Anita Vergara MA 01/09/20 Telephone [facility] at [address] [place] [phone] Justa Westbrook MA 01/08/20 2:45 PM ROOM SERVICE MANAGER Office Visit [facility] at [address] [place] [phone] Olivia Flowers NP Acute cough (Primary Dx); Upper respiratory infection, viral; Fever, unspecified fever cause 12/28/19 Telephone [facility] Gastroenterology at [address] [place] [phone] Kiya Keyes 12/27/19 4:19 PM ROOM SERVICE MANAGER - 12/27/19 24 8:13 PM ROOM SERVICE MANAGER Emergency [facility] [address] [place] [address] Perico Wagner MD Gastroesophageal reflux disease, unspecified whether esophagitis present (Primary Dx) Discharge Disposition: Discharge to home or self care from Last 3 Months Immunizations Name Administration Dates Next Due Influenza, Unspecified 02/14/2024(Deferr ed: Patient Refused),10/25/2023(Deferred: Patient Refused),03/08/2023(Deferred: Patient Refused),02/07/2023(Deferred: Patient Refused),02/15/2022(Deferred: Patient Refused),06/04/2021(Deferred: Patient Refused),11/07/2020(Deferred: Patient Refused),11/08/2019(Deferred: Patient Refused),03/05/2019(Deferred: Patient Refused),02/07/2018(Deferred: Patient Refused),02/07/2018(Deferred: Patient Refused),08/15/2017(Deferred: Patient Refused) Moderna SARS-CoV-2 Monovalen t Vaccination (12+ YRS) 04/22/2020,03/19/2020 Pneumococcal Polysaccharide PPV23 06/04/2021(Def erred: Patient Refused) Tdap 10/07/2023 Surgical History Surgery Date Site/Laterality Comments OTHER SURGICAL HISTORY 02/08/2008 - 02/06/2009 stump tumor: Exploratory laparotomy/BSO, smental bx, cystoscopy OTHER SURGICAL HISTORY 02/07/1997 - 02/06/1998 sterilization: Bilateral tubal ligation MASTECTOMY 09/08/2015 - 10/08/2015 IMPLANT GASTROCNEMIUS 06/07/2016 - 07/07/2016 CHOLECYSTECTOMY 05/29/2020 VOCAL CORD LATERALIZATION, ENDOSCOPIC APPROACH W/ MLB 10/19/[address] Sony Barrios COLONOSCOPY 10 years ago COLONOSCOPY 05/10/2023 Medical History Medical History Date Comments Hx Other Medical 12/24/2008 stump tumor Hx Other Medical 08/16/1997 sterilization Hx Other Medical migraine; Comme nts: DRS 12/17/2013 -dx'd at 7 y/o w/Migraines. Gastrointestinal tract bleed 01/10/2012 Contusion of rib on left side 02/25/2023 Alexis's edema of vocal folds diggs d surgery to correct this Palpitations Family History Medical History Relation Name Comments Heart disease Brother 2 Graeme No Known Problems Daughter Merlyn Coronary artery disease Father Crescencio nary artery disease; Other Mother Cancer, breast; DM; No Known Problems Son 1 Cooper No Known Problems Son 2 Aaron Relation Name Status Comments Brother 1 Ed Alive Brother 2 Graeme Alive Daughter Merlyn Alive Father Mother Son 1 Cooper Alive Son 2 Aaron Alive Social History Tobacco Use Types Packs/Day Years [...] on file Legal Sex Female 11:50 PM ROOM SERVICE MANAGER Gender Identity Not on file Sexual Orientation Not on file Obstetrics History Last Filed Vital Signs Vital Sign Reading Time Taken Comments Blood Pressure 124/76 02/14/2024 3:20 PM ROOM SERVICE MANAGER Pulse 80 02/14/2024 3:20 PM ROOM SERVICE MANAGER Temperature 36.8 ??C (98.2 ??F) 02/14/2024 3:20 PM CS T Respiratory Rate 16 01/25/2024 10:56 AM ROOM SERVICE MANAGER Oxygen Saturation 98% 02/14/2024 3:20 PM ROOM SERVICE MANAGER Inhaled Oxygen Concentration - - Weight 86.6 kg (191 lb) 02/14/2024 3:20 PM ROOM SERVICE MANAGER Height 170.2 cm (5' 7 ) 02/14/2024 3:20 PM ROOM SERVICE MANAGER Body Mass Index 29.91 02/14/2024 3:20 PM ROOM SERVICE MANAGER Plan of Treatment Health Maintenance Due Date Last Done Comments Hepatitis C Screening 1960 Hepatitis B Screening 1980 Regular Well Visit/Exam 18-64 1980 Zoster Vaccine (1 of 2) 2012 Covid-19 Vaccine ( season) 2023 04/22/2020, 03/19/2020 Influenza Vaccine (#1) 2024 Postp oned from 10/09/2023 (Patient declined, but will receive in the future) Lung Cancer Screening 11/10/2024 11/10/2023 , 07/23/2022, 01/06/2021, Additional history exists Depression Screening 02/13/2025 02/14/2024, 10/25/2023, 09/09/2022, Additional history exists Colon Cancer Screening-Colonoscopy 05/09/2033 05/10/2023, 01/14/2012 DTaP/Tdap/Td Vaccine (2 - Td or Tdap) 10/06/2033 10/07/2023 Breast Cancer Screening-Mammogram Discontinued 07/16/2015 Colon Cancer Screening-CT Colonography Discontinued 05/10/2023, 01/14/2012 Colon Cancer Screening-DNA Stool Discontinued 05/10/2023, 01/14/2012 Colon Cancer Screening-FIT Discontinued 05/10/2023, Colon Cancer Screening-Sigmoidoscopy Discontinued 05/10/2023, 01/14/2012 Pneumococcal vaccine <65 Aged Out No longer eligible based on patient's age to complete this topic Medical Devices Implanted Type Area Wad Impregnator Device Identifier Shelf Expiration Date Model / Serial / Lot Involver Angio-Seal Vip 6fr Closere Device [id number] - [id number] Implanted:Qty: 1 on 08/04/2023 by Ashvin Suarez MD at [facility] Involver 12/24/2023 [id number] / / [id number] Procedures Procedure Name Priority Date/Time Associated Diagnosis Comments US ABDOMEN COMPLETE Schedule Routine, Read Routine (OP Routine) 02/22/2024 9:00 AM ROOM SERVICE MANAGER LUQ pain SURGICAL PATHOLOGY STAT 01/25/2024 1:13 PM ROOM SERVICE MANAGER Gastroesophagea l reflux disease, unspecified whether esophagitis present H. PYLORI UREASE SCREEN (JOSEPH TEST) STAT 01/25/2024 10:25 AM ROOM SERVICE MANAGER BOUGIE DILATION 01/25/2024 10:01 AM ROOM SERVICE MANAGER Gastroesophagea l reflux disease, unspecified whether esophagitis present ESOPHAGOGASTRODUODENOSCOPY BIOPSY 01/25/2024 10:01 AM ROOM SERVICE MANAGER Gastroesophagea l reflux disease, unspecified whether esophagitis present EGD 01/25/2024 8:24 AM ROOM SERVICE MANAGER XR CHEST PA LATERAL 2 VIEWS Schedule THIAGO, Read THIAGO (Appt Today, Awaiting Results) 01/09/2024 8:20 AM ROOM SERVICE MANAGER Acute cough Upper respiratory infection, viral Fever, unspecified fever cause POC INFLUENZA A/B, COVID-19 ANTIGEN Routine 01/08/2024 3:12 PM ROOM SERVICE MANAGER Acute cough TROPONIN T HIGH-SENSITIVITY 4-HR Timed 12/27/2023 6:46 PM ROOM SERVICE MANAGER TROPONIN T HIGH-SENSITIVITY 2-HOUR Timed 12/27/2023 4:44 PM ROOM SERVICE MANAGER URINALYSIS AND REFLEX TO MICROSCOPIC AND CULTURE Routine 12/27/2023 3:03 PM ROOM SERVICE MANAGER EGFR STAT 12/27/2023 2:37 PM ROOM SERVICE MANAGER DIFFERENTIAL AUTO STAT 12/27/2023 2:37 PM ROOM SERVICE MANAGER TROPONIN T HIGH-SENSITIVITY SERIES (BASELINE, 2HR, 4HR, 6HR) STAT 12/27/2023 2:37 PM ROOM SERVICE MANAGER COMPREHENSIVE METABOLIC PANEL STAT 2:37 PM ROOM SERVICE MANAGER CBC WITH AUTO DIFFERENTIAL STAT 12/26 2:37 PM ROOM SERVICE MANAGER XR CHEST 1 VIEW ED 12/27/2023 1:24 PM ROOM SERVICE MANAGER ECG 12-LEAD STAT 12/27/2023 1:10 PM RO[address] SERVICE MANAGER CT LUNG CANCER SCREENING Schedule Routine, Read Routine (OP Routine) 11/10/2023 7:05 AM CDT Former smoker COLONOSCOPY 05/10/2023 8:24 AM CDT SCREENING MAMMOGRAM W CEDRIC Routine 07/15 11:02 AM CDT from Last 3 Months or Most Recently Relevant to Health Maintenance Results * US Abdomen Complete (02/22/2024 9:00 AM ROOM SERVICE MANAGER) Anatomical Region Laterality Modality Abdomen N/A Ultrasound 02/22/2024 10:5 0 AM ROOM SERVICE MANAGER Impressions 02/22/2024 10:50 AM ROOM SERVICE MANAGER 1. ??Cholecystectomy. 2. ??The liver and bile ducts are normal. 3. ??The spleen and both kidneys appear normal. Electronically signed by: Arnoldo Martinez M.D. Narrative 02/22/2024 10:50 AM ROOM SERVICE MANAGER EXAM: ?? US ABDOMEN COMPLETE DATE: ?? [...] normal. Electronically signed by: Arnoldo Martinez M.D. us Conor Ruiz MD [facility] US PROCEDURES Final R esult * Surgical pathology (01/25/2024 1:13 PM ROOM SERVICE MANAGER) Tissue (Esophageal biopsy) 01/25/2024 10:27 AM ROOM SERVICE MANAGER Narrative PATHOLOGY [facility] - 01/26/2024 1:57 PM ROOM SERVICE MANAGER EPIC results best viewed via link to PDF [facility] Department of Pathology [address] [place] [address] Note to Patients: This report may contain [...] Final Report Patient Name: ??ALOK CRAIG Address: ??[address] [place] [address], ??[place], [place] [address] Gender: ??F : ??1960 (Age: 63) Service: ??Gastro Location: ??[facility] ENDO Hospital #: ??[id number] Patient Type: ??[facility] Accession # [id number] Taken: ??01/25/2024 Received: ??01/25/2024 Accessioned: ??01/25/2024 Reported: [...] determined by the Surgical Pathology Department at [facility] as part of an ongoing quality improvement manager program and in compliance with federally mandated [...] characteristics determined by the Surgical Pathology Department [facility]. ??It has not been cleared or approved by the U. S. Food and Drug Administration. Note for decalcified specimens: This assay has not been validated on decalcified tissues. Results should be interpreted with caution given the possibility of false negativity on decalcified specimens Ailin Juarez MD LAB PATHOLOGY ORDERABLES F inal Result PATHOLOGY [facility] [address] [place] [address] * H. pylori urease screen (JOSEPH test) Tissue (01/25/2024 10:25 AM ROOM SERVICE MANAGER) H. pylori, rapid (JOSEPH) Negative Negative Tissue 01/25/2024 10:2 5 AM ROOM SERVICE MANAGER 01/25/2024 11:57 AM ROOM SERVICE MANAGER Ailin Juarez MD LAB MICROBIOLOGY - GENERAL ORDERABLES Final Result Performing Organization Address City/[facility]/ZIP Co de Phone Number [facility] [address] [facility] Department [place] [address] * EGD (01/25/2024 8:24 AM ROOM SERVICE MANAGER) Anatomical Region Laterality Modality Other Narrative Procedure Note Ailin Juarez MD - 01/25/2024 8:24 AM CST [facility] Patient Name: Alok Craig Procedure Date: 01/25/2024 8:24 AM Date of : 1960 Admit Type: Outpatient Age: 63 Gender: Female Attending MD: Ailin Juarez M.D. Room: [facility] ENDOSCOPY ROOM 1 Note Status: Finalized Patient [...] passed under direct vision. The Endoscope [id number] was introduced through the mouth, and advanced [...] 8:24 AM Procedure Code(s): --- Professional --- 95155, Esophagogastroduodenoscopy, flexible, transoral; with biopsy, single or multiple 13421, Dilation of esophagus, by unguided sound or bougie, single or multiple passes Diagnosis Code(s): --- Professional --- K22.89, Other specified disease of esophagus R13.10, Dysphagia, unspecified R12, Heartburn CPT copyright 2020 [employer]. All rights reserved. The codes documented in this report are preliminary and upon hcc coders reviewmay be revised to meet current compliance requirements. Recognized by the [place] [employer] for promoting quality in endoscopy us Ailni Juarez MD ENDOSCOPY PROCEDURES Final Result * XR Chest Pa Lateral 2 Views (01/09/2024 8:20 AM ROOM SERVICE MANAGER) Anatomical Region Laterality Modality Body, Chest N/A Computed Radiogr aphy 01/09/2024 8:25 AM ROOM SERVICE MANAGER Narrative 01/09/2024 8:25 AM ROOM SERVICE MANAGER EXAM DESCRIPTION: XR CHEST PA LATERAL 2 [...] AM - Electronically signed by ??Anton Arana M.D., JR: D: ??01/09/2024 8:25 AM T: ??01/09/2024 8:25 AM Report ID: [id number] Reading Location: ??[id number] Procedure Note Anton Arana MD - 01/09/2024 [...] by Anton Arana M.D. JR: Report ID: [id number] Reading Location: [id number] Olivia Flowers MANAGEMENT EXPERT IMG XR PROCEDURES Final Result * POC Influenza A/B, COVID-19 antigen (01/08/2024 3:12 PM ROOM SERVICE MANAGER) [facility] Influenza A Ag, POC Negative Negative [facility] Influenza B Ag, POC Negative Negative [facility] COVID-19 Ag POC Presumptive Negative Presumptive Negative, Invalid [facility] Nasal 01/08/2024 3:12 PM ROOM SERVICE MANAGER Olivia Flowers MANAGEMENT EXPERT POINT OF CARE TEST ORDERABLES Final Result [facility] [address] [place] [address], [facility] * Troponin T high-sensitivity 4-hour (12/27/2023 6:46 PM ROOM SERVICE MANAGER) [facility] Trop T hs <6 <=14 ng/L Comment: Interpretive Data For further hscTnT resources including the diagnostic algorithm and an aid in interpretation, copy and paste this link: https://nrl.testcatMusistic.org/show/hsTrop Current Interpretive Data last revised 2019. Trop T hs delta 0 ng/L [facility] (PRECIOUS) Trop T hs interp Insignificant [facility] (PRECIOUS) Blood 12/27/2023 6:46 PM ROOM SERVICE MANAGER 12/27/2023 6:55 PM ROOM SERVICE MANAGER Perico Wagner MD LAB BLOOD ORDERABLES Final R esult Performing Organization Address [facility] Co de Phone Number [facility] ([place]) 1 [facility] [place] [address] * Troponin T high-sensitivity 2-hour (12/27/2023 4:44 PM ROOM SERVICE MANAGER) Trop T hs <6 <=14 ng/L Comment: Interpretive Data For further hscTnT resources including the diagnostic algorithm and an aid in interpretation, copy and paste this link: https://nrl.10BestThings.org/show/hsTrop Current Interpretive Data last revised 2019. Trop T hs delta 0 ng/L [facility] ([facility]CI[facility]) Trop T hs interp Insignificant [facility] (PRECIOUS) Blood 12/27/2023 4:44 PM ROOM SERVICE MANAGER 12/27/2023 4:46 PM ROOM SERVICE MANAGER Perico Wagner MD LAB BLOOD ORDERABLES Final R esult Performing Organization Address City/[facility]/ZIP Co de Phone Number [facility] (PRECIOUS) [address] [facility] [place] [address] * Urinalysis reflex to microscopic and culture Urine (12/27/2023 3:03 PM ROOM SERVICE MANAGER) Color, ur Straw Yellow Clarity, ur Clear Clear [facility] A ([place]) Specific gravity, ur 1.007 1.003 - 1.030 [facility] ([place]) pH, urine 7.5 [facility] (PRECIOUS) Comment: Interpretive Data ? Urine pH is affected by diet, medications, systemic acid-base disturbances, and renal tubular function. ??pH may affect urinary stone formation. ??For example, urine pH below 6.0 may help reduce the tendency for calcium phosphate stones and pH greater than 6.0 may reduce the tendency for uric acid stone formation. Source: [facility] Current Interpretive Data was last revised on [...] microscopic UA and culture not met. [facility] (PRECIOUS) Urine 12/27/2023 3:03 PM ROOM SERVICE MANAGER 12/27/2023 3:06 PM ROOM SERVICE MANAGER Faye PICKERING LAB MICROBIOLOGY - [facility] Final Result [facility] (PRECIOUS) [address] [facility] Department [place] [address] * Troponin T high-sensitivity series (baseline, 2hr, 4hr, 6hr) (12/27/2023 2:37 PM ROOM SERVICE MANAGER) Trop T hs <6 <=14 ng/L Comment: Interpretive Data For further hscTnT resources including the diagnostic algorithm and an aid in interpretation, copy and paste this link: https://nrl.testcatalog.org/show/hsTrop Current Interpretive Data last revised 2019. Blood 12/27/2023 2:37 PM ROOM SERVICE MANAGER 12/27/2023 2:42 PM ROOM SERVICE MANAGER us Perico Wagner MD LAB BLOOD ORDERABLES Final R esult Performing Organization Address City/[facility]/ZIP Co de Phone Number [facility] (PRECIOUS) [address] [facility] [employer] [place] [address] * eGFR (12/27/2023 2:37 PM ROOM SERVICE MANAGER) eGFR >90 >=60 mL/min/1. 73 m2 Comment: [...] last reviewed 2020. Blood 12/27/2023 2:37 PM ROOM SERVICE MANAGER 12/27/2023 2:42 PM ROOM SERVICE MANAGER Perico Wagner MD LAB BLOOD ORDERABLES Final R esult [facility] (PRECIOUS) [address] [facility] [place] [employer] [place] [address] * Differential, auto (12/27/2023 2:37 PM ROOM SERVICE MANAGER) Neutrophil abs 3.0 1.5 - 6.5 K/cumm [...] revised on 2017. Blood 12/27/2023 2:37 PM ROOM SERVICE MANAGER 12/27/2023 2:42 PM ROOM SERVICE MANAGER Perico Wagner MD LAB BLOOD ORDERABLES Final R esult [facility] (PRECIOUS) [address] [facility] Department [place] [address] * (ABNORMAL) CBC with auto differential (12/27/2023 2:37 PM ROOM SERVICE MANAGER) [facility] WBC 6.1 3.8 - 9.9 K/cumm Hgb 12.8 11.9 - 15.5 g/dL [facility] Hct 37.9 35.6 - 45.5 % [facility] ([facility]CI[facility]) Plt 316 150 - 400 K/cumm [facility] ([facility]CI[facility]) MPV 8.2(L) 9.1 - 12.3 fL [facility] RBC 4.28 3.90 - 5.20 M/cumm [facility] (PRECIOUS) MCV 88.6 81.3 - 96.4 fL [facility] ([facility]CI[facility]) MCH 29.9 27.1 - 33.3 pg [facility] (PRECIOUS) MCHC 33.8 32.3 - 35.7 g/dL [facility] (PRECIOUS) RDW CV 12.6 11.1 - 14.9 % [facility] (PRECIOUS) RDW SD 40.9 35.7 - 48.1 fL [facility] NRBC abs 0.00 0.00 - 0.01 K/cumm [facility] Blood (Blood, Venous) 12/27/2023 2:37 PM ROOM SERVICE MANAGER 12/27/2023 2:42 PM ROOM SERVICE MANAGER Perico Wagner MD LAB BLOOD ORDERABLES Final R esult [facility] (PRECIOUS) 1 [facility] [place] [address] * Comprehensive metabolic panel (12/27/2023 2:37 PM ROOM SERVICE MANAGER) Sodium 139 135 - 145 mmol/L Potassium, [...] Hemolyzed S pecimen Blood 12/27/2023 2:37 PM ROOM SERVICE MANAGER 12/27/2023 2:42 PM ROOM SERVICE MANAGER us Perico Wagner MD LAB BLOOD ORDERABLES Final R esult [facility] (PRECIOUS) 1 [facility] Department [place] [address] * XR Chest 1 Vw Portable (if patient condition/safety warrant portable) (12/27/2023 1:24 PM ROOM SERVICE MANAGER) Anatomical Region Laterality Modality Body, Chest N/A Computed Radiogr aphy 12/27/2023 1:43 PM ROOM SERVICE MANAGER Narrative 12/27/2023 1:44 PM ROOM SERVICE MANAGER EXAM DESCRIPTION: XR CHEST 1 VIEW REASON [...] PM T: ??12/27/2023 1:44 PM Report ID: [id number] Reading Location: ??[id number] Procedure Note Olvin Stauffer, DO - 12/27/2023 [...] Olvin Stauffer D.O. PS: PS Report ID: [id number] Reading Location: [place] [address] Perico Wagner MD IMG XR PROCEDURES Final Resu lt * ECG 12 lead (12/27/2023 1:10 PM ROOM SERVICE MANAGER) 12/27/2023 1:10 PM ROOM SERVICE MANAGER Narrative [facility] - 12/27/2023 2:31 PM ROOM SERVICE MANAGER Vent Rate: 82 bpm RR Interval: 728 msec GA Interval: 144 msec QRS Duration: 98 msec QT Interval: 362 msec QTC Interval: 400 msec P-R-T Wilmot: 84 - 86 - 88 degrees IMPRESSION: SINUS RHYTHM Probable early repolarization Compared to prior EKG, heart rate is now faster Electronically Signed By: Dr Christian Baptiste Perico Wagner MD ECG ORDERABLES Final Result [facility] [facility] * CT Lung Cancer Screening (11/10/2023 [...] AM T: ??11/14/2023 9:32 AM Report ID: [id number] Reading Location: ??[id number] Procedure Note Tylor Vásquez MD - 11/14/2023 [...] Tylor Vásquez M.D. LB: JORGE Report ID: [id number] Reading Location: [place] [address] us Adri Carlson NP IM CT PROCEDURES Final Re sult * Colonoscopy (05/10/2023 8:24 AM CDT) Anatomical Region Laterality Modality Other Narrative Procedure Note Ailin Juarez MD - 05/10/2023 8:24 AM CDT [facility] Patient Name: Alok Craig Procedure Date: 05/10/2023 8:24 AM Date of : 1960 Admit Type: Outpatient Age: 62 Gender: Female Attending MD: Ailin Juarez M.D. Room: [facility] ENDOSCOPY ROOM 1 Note Status: Finalized Patient [...] under direct vision. The Pediatric Colonoscope [id number] was introducedthrough the anus and advanced to [...] 8:24 AM Procedure Code(s): --- Professional --- 26566, Colonoscopy, flexible; diagnostic, including collection of specimen(s) by brushing or washing, when performed (separateprocedure) Diagnosis Code(s): --- Professional --- Z12.11, Encounter for screening for malignant neoplasm of colon K64.8, Other hemorrhoids K57.30, Diverticulosis of large intestine without perforation orabscess without bleeding CPT copyright 2020 [employer]. All rights reserved. The codes documented in this report are preliminary and upon hcc coders reviewmay be revised to meet current compliance requirements. Recognized by the [place] [employer] for promoting quality in endoscopy us Ailin Juarez MD ENDOSCOPY PROCEDURES Final Result * Screening Mammogram W Cedric (07/16/2015 11:02 AM CDT) Anatomical Region Laterality Modality Breast N/A Mammography 07/16/2015 11:0 2 AM CDT Narrative 07/16/2015 1:05 PM CDT MANDY HINOJOSA M.D. FINAL REPORT ACC# ??Date Time ??Exam [id number] Jul 16, 2015 11:02:00 [facility] [id number] Bilateral screen w cedric ?? Technologist(s): Elizabeth Bryan; ; EXAMINATION: ??Mammogram Technique: Bilateral Full-Field Digital Screening Mammogram and Digital Breast Tomosynthesis were performed. ??Views obtained: ??bilateral craniocaudal and bilateral mediolateral oblique. ??Computer Aided Detection of the 2D images was performed with Ohloh.3 version 9.3. Mammogram Findings: The present examination has been compared to prior imaging studies performed at [facility] on 12/29/2012 and 07/12/2012. There are scattered [...] MANDY HINOJOSA M.D. on Jul ??2015 ??1:05P [id number] Procedure Note Provider, MD Shantell - 06/02/2016 MANDY HINOJOSA M.D. FINAL REPORT ACC# Date Time Exam [id number] Jul 16, 2015 11:02:00 [facility] [id number] Bilateral screen w cedric Technologist(s): Elizabeth Bryan; ; EXAMINATION: Mammogram Technique: Bilateral Full-Field Digital Screening Mammogram and Digital Breast Tomosynthesis were performed. Views obtained: bilateral craniocaudaland bilateral mediolateral oblique. Computer Aided Detection of the 2Dimages was performed with Ohloh.3 version 9.3. Mammogram Findings: The present examination has been compared to prior imaging studies performed at [facility] on 12/29/2012 and 07/12/2012. There are scattered [...] HINOJOSA M.D. on Jul 16 2015 1:05P [id number] Historical Provider MD PELAEZ MAMMO PROCEDURES Peggy l Result from Last 3 Months or Most Recently Relevant to Health Maintenance Insurance [facility] [employer] Advance Directives For more information, please contact: [phone] * Full Code (Latest Code Status on [...] 6:03 AM 05/29/2020 9:09 PM Care Teams [employer] Professor Relationship Specialty Start Date End Date Conor Ruiz MD [address] [place] [address] PCP - General 05/07/16 Corky Carias MD [address] [place] [address] Surgeon General Surgery 05/29/20 Grazyna Valdivia, MANAGEMENT EXPERT [address] [place] [address] Nurse Practitioner Family Medicine 05/29/20 Aletha Lee, PT Physical Therapist Physical Therapy 07/20/21
--- OUTSIDE RECORDS SUMMARY | 2024-03-10 09:11 | XMS_ITS | Continuity of Care Document ---
Author Organization [facility] Address [address] [place] [address] [address] [place] [address] Phone Care Team Providers Care Fire Alarm Mechanic Name Role Phone [facility] Unavailable Unavail able Beronica Owens Unavailable Unavailable Procedures Procedure Date Contact Lens Hydrophilic, Spherical Cntct Lens Hydrophilic Toric Or Prism Ba llast Contact Lens Hydrophilic, Spherical Cntct Lens Hydrophilic Toric Or Prism Ba llast Cntct Lens Hydrophilic Toric Or Prism Ba [facility] CL Replacement - [place] Other 009 CL Replacement - [place] Other 009 CL Replacement - [place] Other 008 Eye Exam & Treatment Advance Directives Directive Yes / No Effective Date File Name No Information Encounters Encounter Description Practice Location Reason(s) For Visit Diagnoses Date Provider Providers Copied on Encounter [facility], [address] [place] [address] [address], [place], [place], [id number], [place] tel:[phone] [facility] Professional No Information 1 [facility] [employer] . [address] [facility], [place] [address], [place], [place], [id number], [place]. tel:[phone] Referring Provider: Walter Sharma, [address] [place], [address] . tel:[phone] sulting Provider: Beronica Owens, [address] [facility] [place], [address]. tel:[phone] [facility], [address], [place], [place], [id number], [place] tel:[phone] [address] [place] Professional No Information Apr-0 4-201 1 [facility] . [address] [facility], [address], [place], [place], [id number], . tel:[phone] Referring Provider: Walter Sharma, [address] [facility], [place], [address] . tel:[phone] sulting Provider: Beronica Owens, [address] [place] [address], [address]. tel:[phone] [facility], [address], [place], [place], [address], [place] tel:[phone] [place] Professional No Information Nov-2 2-201 0 [facility] . [address] [facility], [address] [place] [address], [id number], [place]. tel:[phone] Referring Provider: Walter Sharma, [address] [facility], [place], [address] . tel:[phone] sulting Provider: Lynda Rubio, [address] [place] [address], [address]. tel:[phone] [facility], [address], [place], [place], [id number], [place] tel:[phone] [address] Professional No Information Randolph-3 0-201 0 [facility] . [address] [facility], [address], [place], [id number], . tel:[phone] Referring Provider: Walter Sharma, [address] [facility] [place], [address] . tel:[phone] sulting Provider: Karissa Osborn, [address] [place], [address]. tel:[phone] [facility], [address], [place], [place], [address], tel:[phone] [place] Professional No Information Feb-0 8-201 0 [facility] . [address] [facility], [address], [id number], . tel:[phone] Referring Provider: Walter Sharma, [address] [place], [address] . tel:[phone] [facility], [address], [place], [place], [address], tel:[phone] [place] Professional No Information Randolph-2 5-200 9 [facility] . [address], [id number], . tel:[phone] Referring Provider: Walter Sharma, [address] [facility] [address], [place], [address] . tel:[phone] [facility], [address], [place], [place], [address], tel:[phone] [place] Professional No Information Feb-0 2-200 9 [facility] . [address] [facility], [address], [id number], . tel:[phone] Referring Provider: Walter Sharma, [address] [facility] [place], [address] . tel:[phone] [facility], [address], [place], [place], [address], tel:[phone] [place] Professional No Information Oct-2 7-200 8 [facility] . [address] [facility], [address], [id number], [place]. tel:[phone] Referring Provider: Walter Sharma, [address] [facility] [address], [place], [address] . tel:[phone] [facility], [address] [facility] [address], [place], [place], [id number], [place] tel:[phone] [address] [place] Professional No Information Sep-0 4-200 8 Terrance Watson. [address], [place], [place], [address], [place]. tel:[phone] Family History Family Member Type Diagnosis Age At Onset No Information Payers Payer name Insurance type Covered democrat ID Authoriza tion(s) No Information Social History Type Description Quantity Date Captured Comments Sex Female Smoking Status No Information Chief Complaint And Reason For Visit No Information Reason For Referral Reason For Referral No Information History Of Present Illness Encounter Date Complaint History Of Prese nt Illness No Information Functional Status Date Functional Assessmen t No Information Instructions Date Instruction Additional Infor mation No Information Assessments Type Assessment Date No Information Patient Care Teams Name Effective Dates (start - stop) Status Members No Information
[2024-03-10 09:26] VITALS: BP 125/81; PULSE 100; RESP 20; TEMP 37.6; O2SAT 100
--- NOTE | 2024-03-10 09:29 | ED.URI ---
HPI - URI/Sore Throat General Chief Complaint: Upper Respiratory Infection Stated Complaint: Fever/Cough Time Seen by Provider: 03/10/24 09:29 Source: patient, RN notes reviewed and old records reviewed Mode of arrival: ambulatory Limitations: no limitations History of Present Illness HPI Narrative: 63 [facility] complaints of increased sinus congestion with drainage and facial pressure for 3 days, fever today and increased cough with body aches. Patient reports that she has been taking Tylenol for her pain and fevers, Patient reports that she had pneumonia in January and then she had COVID. Patient reports that she has had some cough and sinus congestion since she had the COVID. MD elicited complaint: fever, cough, rhinorrhea, nasal congestion and other (body aches) Pertinent past history: pneumonia and other (COVID in February) Onset (ago): day(s) (3) Severity: moderate Able to tolerate fluids by mouth: Yes Treatments prior to arrival: acetaminophen Related Data Home Medications ?Medication ?Instructions ?Recorded ?Confirmed ?Last Taken ?Type levothyroxine 112 mcg tablet 112 mcg PO DAILY 10/29/20 11/03/22 Unknown History omeprazole 40 mg capsule,delayed 40 mg PO DAILY 10/29/20 11/03/22 Unknown History release calcium carbonate (Calcium 600) 1,200 mg PO ONCE 09/14/22 11/03/22 Unknown History multivitamin 1 tablet PO DAILY 09/23/22 11/03/22 Unknown History metoprolol succinate 25 mg mg PO 03/10/24 Unknown History tablet,extended release 24 hr Allergies Allergy/AdvReac Type Severity Reaction Status Date / Time fentanyl Allergy Severe Elevated Verified 03/10/24 09:29 heart rate promethazine Allergy Severe elevated Verified 03/10/24 09:29 heart rate diltiazem Allergy Unknown unknown Verified 03/10/24 09:29 Review of Systems Review of Systems: CONSTITUTIONAL: Reports malaise, chills, sweats, or fever. EYES: Denies visual changes, redness, or discharge. ENT: Reports rhinorrhea, congestion, sinus pain,no otalgia and no sore throat. CARDIOVASCULAR: Denies chest pain, palpitations, or edema. RESPIRATORY: Reports cough.? Denies dyspnea. GASTROINTESTINAL: Denies abdominal pain, nausea, vomiting, diarrhea SKIN: Denies rash or itching. MUSCULOSKELETAL:reports myalgia. NEUROLOGIC: reports headache. All systems reviewed & are unremarkable except as noted in HPI and below PMFSH Past Medical History Medical History (Updated 03/11/24 @ 08:11 by Liliya Carranza NP) GERD (gastroesophageal reflux disease) Paroxysmal A-fib Hypertension Hypothyroidism Uterine cancer Breast cancer 2001 and 2016 Surgical History Surgical History (Updated 03/10/24 @ 10:19 by Liliya Carranza NP) H/O: hysterectomy S/P mastectomy, bilateral Social History Social History (Updated 03/10/24 @ 10:18 by Liliya Carranza NP) Smoking packs per day: 1 Smoking cigarettes per day: 20.0 Years smoked: 40 Smoking pack-years: 40.00 Smoking status: Former smoker Tobacco type: cigarettes Additional smoking assessment comments: quit 10/2022 Alcohol intake: current Alcohol use details: social Substance use type: does not use Lack of Transportation: No Lack of Food: Never True Current Housing: I Have Housing Concerned About Future Housing: No Difficulty Paying Gas/Electric Bills: No Difficulty Paying for Meds: No Currently Unemployed: No Education: High School Diploma/GED Difficulty w/ Childcare or Family Care: No Living arrangements: with family Gender identity (if verbalized by the patient): Female Spiritual care concerns: No Comments At time of signature, agree with nursing past medical, surgical, social and family history. There is no relevant family history pertinent to the presenting complaint Exam Narrative: GENERAL:Illl-appearing, well-nourished, and in no acute distress. HEAD: Normocephalic EYES: PERRLA, conjunctivae clear ENT: Nares clear, turbinates edematous and erythematous, clear discharge, sinus pressure and headache pain. Mucous membranes moist. TM pearly dawn with dull light reflex bilaterally; no tragal tenderness. Oropharynx erythematous without lesions. Tonsils not enlarged and throat without exudate, no drooling, no hoarseness, no trismus, uvula midline.post nasal drainage NECK: Supple. No lymphadenopathy CHEST: Clear to auscultation, breath sounds equal. No wheezing, rhonchi, rales, or stridor. No respiratory distress, speaks in full sentences. acute cough SAO2 100% on room air HEART: Regular rate and rhythm. No murmur heard. SKIN: Warm, dry, no rash. NEURO: Alert and oriented x3. PSYCH: Normal mood and affect Course Course Emergency Course: Patient is aware of diagnosis, understands and agrees to treatment plan.? Anticipatory guidance given.? Patient agrees to follow-up as directed and is aware of reasons to seek care at the emergency department. Portions of this record may have been created with voice recognition software Level of Care: Express Care Visit Vital Signs Vital signs: Vital Signs Temperature 37.6 C H 03/10/24 09:26 Pulse Rate 100 03/10/24 09:26 Respiratory Rate 20 03/10/24 09:26 Blood Pressure 125/81 03/10/24 09:26 Pulse Oximetry 100 03/10/24 09:26 Oxygen Delivery Room Air 03/10/24 09:26 Temperature 37.6 C H 03/10/24 09:26 Pulse Rate 100 03/10/24 09:26 Respiratory Rate 20 03/10/24 09:26 Blood Pressure 125/81 03/10/24 09:26 Pulse Oximetry 100 03/10/24 09:26 Oxygen Delivery Room Air 03/10/24 09:26 Reviewed MDM - URI/Sore Throat MDM Narrative Medical decision making narrative: Differential diagnosis considered: Grady virus, strep pharyngitis, allergic rhinitis, upper respiratory tract infection, sinusitis, rhinosinusitis, nasopharyngitis. viral pharyngitis, otitis media, otitis externa, pneumonia, bronchitis, viral cough syndrome, viral syndrome, and influenza.? Exam findings show no acute concerns or changes; patient is non-toxic appearing and is in no distress.? Patient is appropriate for outpatient treatment and follow-up. Differential Diagnosis Differential diagnosis: Likely upper respiratory infection, sinusitis, viral infection and other (acute cough) Medical Records Attestation: I reviewed the patient's medical records. Lab Data Attestation: I reviewed the patient's lab results. Lab results narrative: Influenza A negative Influenza B negative, COVID antigen negative Labs: Lab Results 03/10/24 Range/Units 09:30 POC Influenza A Ag Negative (Negative) POC Influenza B Ag Negative (Negative) POC SARS CoV-2 Ag Negative (Negative) reviewed Imaging Data Attestation: I personally reviewed and interpreted this imaging study as follows: My impression: no acute cardiopulmonary disease Radiologist's impression: [address] [address] XRay Report Signed Patient: Sri Falk : 1960 MR#: [id number] Age: 63 Acct:[id number] Loc: [facility] ADM Date: 03/10/24Attending Dr: Ordering Physician: Liliya Carranza APRN Date of Service: 03/10/24 Procedure(s): XR chest 2V Accession Number(s): [id number] cc: Sara, Conor Monahan MD; Liliya Carranza COGNOS ADMINISTRATOR~ EXAMINATION: XR chest 2V DATE: 03/10/2024 09:42 INDICATION: Acute cough. TECHNIQUE: Frontal and lateral views of the chest were obtained. COMPARISON: None. FINDINGS: There is no pneumonia, pleural effusion, or pneumothorax. There is a right-sided breast implant. Surgical clips in the right upper quadrant are likely from cholecystectomy. There are surgical clips in left axilla. There is mild chronic height loss of multiple vertebral bodies. IMPRESSION: 1. No acute cardiopulmonary disease. Reviewed, dictated and finalized at location A. ICK ENGINEER Please be advised this is a medical document. It is intended for qzsz-fl-aark communication. It is written in medical language and may contain unfamiliar abbreviations or verbiage. Medical documents are intended to carry relevant information, facts as evident, and the clinical opinion of the practitioner at the time of the encounter. This report may have been done utilizing a voice recognition system. Attempts have been made to correct errors. However, there may be uncorrected grammatical, spelling, and recognition errors present. The file time of this note does not necessarily represent the time of service. Dictated By: Wily Jack MD 03/10/24 0945 Signed By: <Electronically signed by Wily Jack MD in OV> Critical Care Time Critical Care Time Critical Care Time: No Discharge Plan Discharge Clinical Impression: Sinusitis, Acute cough Patient Disposition: Home, Self-Care Condition: Stable Instructions: Antibiotic Form, Sinusitis (ED), Acute Cough (ED) Additional Instructions: Increase fluids especially juices and water Elbl-kpi-eegvztp cough and cold medicine of your choice for your symptoms Delsym or Robitussin DM cough medicine Tylenol or Ibuprofen for any fever or pain Steroids as directed--take with food heat to the face 20-30 minutes 4-6 times a day for pain Salt water gargles, throat lozenges or throat sprays as desired Antibiotic as directed--finished the medication If your symptoms persist, change or worsen significantly before you can contact your personal physician then please, without delay, go to the emergency department for further evaluation. Follow-up with PCP in 7-10 days or sooner if needed Follow up with PCP soon in regards to your blood pressure which is elevated above threshold for referral. Blood pressure above 120/80 may indicate pre-hypertension. Patient Language: Citizen Of [place] Prescriptions: New amoxicillin-pot clavulanate 875-125 mg tablet 1 tablet PO Q12H Qty: 20 0RF Rx Instructions: take probiotic or eat Activa yogurt while taking this medication prednisone 20 mg tablet 20 mg PO BID Qty: 10 0RF No Action metoprolol succinate 25 mg tablet extended release 24 hr PO omeprazole 40 mg capsule,delayed release(DR/EC) 40 mg PO DAILY levothyroxine 112 mcg tablet 112 mcg PO DAILY calcium carbonate [Calcium 600] 600 mg calcium (1,500 mg) tablet 1,200 mg PO ONCE multivitamin Tablet 1 tablet PO DAILY Follow-up/Referrals: Harms,Conor Monahan M.D. [Primary Care Provider] - Time of Disposition: 10:07 Quality Vicenta Coma Scale Eyes: Open Verbal: Oriented and Alert Motor: Follows Commands Vicenta Coma Total Score: 15
[2024-03-10 09:49] LABS: EDCOVIDSCREEN Negative (Negative); EDINFLUASCREEN Negative (Negative); EDINFLUBSCREEN Negative (Negative)
== END 2024-03-10 10:12 | disposition home or self-care (01) ==
PROVIDERS: Emergency Provider Registered Nurse; PCP Family Medicine
DX: J32.9 Chronic sinusitis, unspecified (principal); R05.1 Acute cough; Z20.822 Contact with and (suspected) exposure to COVID-19; Z87.891 Personal history of nicotine dependence; I48.0 Paroxysmal atrial fibrillation; I10 Essential (primary) hypertension; E03.9 Hypothyroidism, unspecified; K21.9 Gastro-esophageal reflux disease without esophagitis; Z85.42 Personal history of malignant neoplasm of other parts of uterus; Z85.3 Personal history of malignant neoplasm of breast; Z90.13 Acquired absence of bilateral breasts and nipples
CPT/HCPCS: 71046; 87426; 87804; 99213; G0463